=== PATIENT | male | born 1935 | race Caucasian/White ===

== ENCOUNTER 2018-02-22 21:18 | Emergency (ER) | payer MEDICARE, OTHER ==
--- NOTE | 2018-02-22 22:13 | EDM.PDOC ---
ED HPI GENERAL MEDICAL PROBLEM - General Chief Complaint: Genitourinary Problem Stated Complaint: BLOOD IN HIS URINE Time Seen by Provider: 02/22/18 21:50 Source of Information: Reports: Patient, Family History Limitations: Reports: No Limitations - History of Present Illness INITIAL COMMENTS - FREE TEXT/NARRATIVE: Esdras comes into [facility] ED with inability to void since early am. 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 He has had issues with hematuria in the past, and did see a Urologist 5 days ago, without findings for hematuria or retention. Upon arrival, there was obvious suprapubic distention, bladder scan noted 901 ml of fluid, and he was cathed with a 16 F Palencia Cath with recovery of 1000 ml of bloody urine, specimen sent to lab. He is feeling better at this time. Lower Bladder Pain Score (Numeric/FACES): 5 - Related Data Allergies Allergy/AdvReac Type Severity Reaction Status Date / Time No Known Allergies Allergy Verified 02/22/18 21:48 Home Meds: Home Meds Aspirin 81 mg PO DAILY 02/22/18 [History] Metoprolol Tartrate 25 mg PO ASDIRECTED 02/22/18 [History] Multivitamin [Multi-Vitamin Daily] 1 tab PO ASDIRECTED 02/22/18 [History] ED ROS GENERAL - Review of Systems Review Of Systems: ROS reveals no pertinent complaints other than HPI. ED EXAM, RENAL/ - Physical Exam Exam: See Below Exam Limited By: No Limitations General Appearance: Alert, WD/WN, Mild Distress Head: Normocephalic Neck: Normal Inspection Respiratory/Chest: Lungs Clear Cardiovascular: Regular Rate, Rhythm GI/Abdominal: Normal Bowel Sounds, Soft, Non-Tender, No Organomegaly, No Distention, Other (suprapubic fullness post cath) Back Exam: Normal Inspection Extremities: Other (ulceration left foot) Neurological: Alert, Oriented, CN II-XII Intact, Normal Cognition, Sensory/ Motor Deficit Psychiatric: Normal Affect, Normal Mood Skin Exam: Warm, Dry Lymphatic: No Adenopathy Course - Vital Signs Text/Narrative:: Following catheterization and removal of 1000 ml of bloody urine, the bladder was irrigated with NS til clear, and reattached to straight drainage. Follow up with PCP tomorrow. Last Recorded V/S: Last Vital Signs Temp 36.5 C 02/22/18 21:51 Pulse 103 H 02/22/18 21:51 Resp 18 02/22/18 21:51 BP 167/83 H 02/22/18 21:51 Pulse Ox 100 02/22/18 21:51 - Orders/Labs/Meds Orders: Active Orders 24 hr Category Date Time Status CULTURE URINE [RM] Stat Lab 02/22/18 22:00 Received UA W/MICROSCOPIC [URIN] Stat Lab 02/22/18 22:00 Ordered Labs: Laboratory Tests 02/22/18 Range/Units 22:00 Urine Color Brown (YELLOW) Urine Appearance Cloudy (CLEAR) Urine pH 5.0 (5.0-6.5) Ur Specific Reynolds 1.015 (1.010-1.025) Urine Protein 500 H (NEGATIVE) mg/dL Urine Glucose (UA) Normal (NEGATIVE) mg/dL Urine Ketones Negative (NEGATIVE) mg/dL Urine Occult Blood Large H (NEGATIVE) Urine Nitrite Positive H (NEGATIVE) Urine Bilirubin Small H (NEGATIVE) Urine Urobilinogen 1 H (NEGATIVE) mg/dL Ur Leukocyte Esterase Moderate H (NEGATIVE) Urine RBC Packed H (0) Urine WBC 5-10 (0) Ur Squamous Epith Cells Occasional (NS,R,O) Urine Bacteria Moderate H (NS) Departure - Departure Time of Disposition: 22:55 Disposition: Home, Self-Care 01 Condition: Fair Clinical Impression: Urinary retention - Discharge Information Referrals: Mario Maradiaga MD [Primary Care Provider] - Forms: ED Department Discharge - Problem List & Annotations (1) Urinary retention SNOMED Code(s): 859069199 Code(s): R33.9 - RETENTION OF URINE, UNSPECIFIED Status: Acute Current Visit: Yes Annotation/Comment:: Keep palencia cath to straight drainage, and follow up with PCP tomorrow regarding disposition. - Problem List Review Problem List Initiated/Reviewed/Updated: Yes - My Orders Last 24 Hours: My Active Orders 02/22/18 22:00 CULTURE URINE [RM] Stat UA W/MICROSCOPIC [URIN] Stat - Assessment/Plan Last 24 Hours: My Active Orders 02/22/18 22:00 CULTURE URINE [RM] Stat UA W/MICROSCOPIC [URIN] Stat Plan: Follow up with PCP tomorrow.
== END 2018-02-22 23:17 | disposition home or self-care (01) ==
LOC: FB.ED 21:18
DX: R33.9 Retention of urine, unspecified (principal); Z79.82 Long term (current) use of aspirin; Z79.899 Other long term (current) drug therapy
CPT/HCPCS: 51702; 51798; 81001; 87086; 99282; 99283

== ENCOUNTER 2018-02-25 20:57 | Emergency (ER) | payer MEDICARE, OTHER ==
--- NOTE | 2018-02-25 21:29 | EDM.PDOC ---
ED HPI GENERAL MEDICAL PROBLEM - General Chief Complaint: Genitourinary Problem Stated Complaint: GENERAL Time Seen by Provider: 02/25/18 21:00 Source of Information: Reports: Patient History Limitations: Reports: No Limitations - History of Present Illness INITIAL COMMENTS - FREE TEXT/NARRATIVE: Esdras returns to [facility] ED this evening unable to void again after his Palencia Cath was removed today by PCP. He reportedly had clear urine, and is unable to explain inability to void. There is no fever, chills or backache. He has tried no meds. - Related Data Allergies Allergy/AdvReac Type Severity Reaction Status Date / Time No Known Allergies Allergy Verified 02/22/18 21:48 Home Meds: Home Meds Aspirin 81 mg PO DAILY 02/22/18 [History] Metoprolol Tartrate 25 mg PO ASDIRECTED 02/22/18 [History] Multivitamin [Multi-Vitamin Daily] 1 tab PO ASDIRECTED 02/22/18 [History] Past Medical History HEENT History: Reports: Impaired Vision Cardiovascular History: Reports: Hypertension Genitourinary History: Reports: Other (See Below) Other Genitourinary History: hx of blood in urine Musculoskeletal History: Reports: Amputation - Infectious Disease History Infectious Disease History: Reports: Chicken Pox, Measles - Past Surgical History Musculoskeletal Surgical History: Reports: Amputation Social & Family History - Family History Family Medical History: Noncontributory - Tobacco Use Smoking Status *Q: Never Smoker Second Hand Smoke Exposure: No - Caffeine Use Caffeine Use: Reports: Coffee - Recreational Drug Use Recreational Drug Use: No ED ROS GENERAL - Review of Systems Review Of Systems: ROS reveals no pertinent complaints other than HPI. ED EXAM, RENAL/ - Physical Exam Exam: See Below Exam Limited By: No Limitations General Appearance: Alert, WD/WN, No Apparent Distress, Anxious Head: Normocephalic Neck: Normal Inspection, Supple Respiratory/Chest: Lungs Clear, Normal Breath Sounds, Chest Non-Tender Cardiovascular: Regular Rate, Rhythm, No Murmur GI/Abdominal: Normal Bowel Sounds, Soft, No Organomegaly, Mass (suprapubic fullness consistent with bladder distention) (Male) Exam: No Hernia Back Exam: Normal Inspection Neurological: Alert, Oriented, CN II-XII Intact, No Motor/Sensory Deficits Psychiatric: Normal Affect, Anxious Skin Exam: Warm, Dry, Intact Lymphatic: No Adenopathy ED PROCEDURES - Additional/Other Procedure(s) Procedure(s) (Free Text): Esdras was placed on the guerney, bladder scan 999+mls. Using sterile technique , the nurse inserted a #16F Palencia Cath easily, 5 ml baloon inflated, and prompt return of clear urine measuring 970 mls. A UA was sent downstairs. Patient tolerated procedure well. Course - Vital Signs Text/Narrative:: Patient tolerated procedure well. Departure - Departure Time of Disposition: 21:29 Disposition: Home, Self-Care 01 Condition: Good Clinical Impression: Urinary retention - Discharge Information Referrals: PCP,Unknown [Primary Care Provider] - Forms: ED Department Discharge - Problem List & Annotations (1) Urinary retention SNOMED Code(s): 770469197 Code(s): R33.9 - RETENTION OF URINE, UNSPECIFIED Status: Acute Current Visit: Yes Annotation/Comment:: Keep palencia cath to straight drainage, and follow up with PCP tomorrow regarding disposition. - Problem List Review Problem List Initiated/Reviewed/Updated: Yes - Assessment/Plan Plan: Follow up with PCP tomorrow.
== END 2018-02-25 22:25 | disposition home or self-care (01) ==
LOC: FB.ED 20:57
DX: R33.9 Retention of urine, unspecified (principal); I10 Essential (primary) hypertension; Z79.82 Long term (current) use of aspirin
CPT/HCPCS: 51702; 51798; 81001; 99283; 99284

== ENCOUNTER 2018-03-25 18:50 | Inpatient (IN) | payer MEDICARE, OTHER ==
--- NOTE | 2018-03-25 19:34 | EDM.PDOC ---
ED HPI GENERAL MEDICAL PROBLEM - General Chief Complaint: Lower Extremity Injury/Pain Stated Complaint: RT LEG REDNESS AND SWELLING Time Seen by Provider: 03/25/18 19:15 Source of Information: Reports: Patient, Family, Old Records History Limitations: Reports: No Limitations - History of Present Illness INITIAL COMMENTS - FREE TEXT/NARRATIVE: Esdras returns to [facility] ED this evening with an 18 hour hx of progressive swelling, pain, and reddness of the R lower leg. There is no injury hx, fever, or sxs affecting the L leg. There is a PMH of chronic venous insufficiency affecting both legs, but no hx of DVT. He has taken no meds. He last saw his PCP 5 days ago for a pre op PE for TURP. Bilateral lower legs Pain Score (Numeric/FACES): 0 - Related Data Allergies Allergy/AdvReac Type Severity Reaction Status Date / Time simvastatin [From Zocor] Allergy Cannot Verified 03/25/18 19:28 Remember Home Meds: Home Meds Aspirin 325 mg PO DAILY 02/22/18 [History] Metoprolol Tartrate 25 mg PO DAILY 02/22/18 [History] Multivitamin [Multi-Vitamin Daily] 1 tab PO BEDTIME 02/22/18 [History] Dutasteride [Avodart] 0.5 mg PO DAILY 03/25/18 [History] Tamsulosin HCl 0.4 mg PO DAILY 03/25/18 [History] Past Medical History HEENT History: Reports: Impaired Vision Cardiovascular History: Reports: Hypertension, Other (See Below) (chronic venous insufficiency both legs) Genitourinary History: Reports: Other (See Below) Other Genitourinary History: hx of blood in urine Musculoskeletal History: Reports: Amputation - Infectious Disease History Infectious Disease History: Reports: Chicken Pox, Measles - Past Surgical History Musculoskeletal Surgical History: Reports: Amputation Social & Family History - Family History Family Medical History: Noncontributory - Tobacco Use Smoking Status *Q: Never Smoker Second Hand Smoke Exposure: No - Caffeine Use Caffeine Use: Reports: Coffee - Recreational Drug Use Recreational Drug Use: No Review of Systems - Review of Systems Review Of Systems: See Below Constitutional: Reports: No Symptoms Eyes: Reports: No Symptoms Ears: Reports: No Symptoms Nose: Reports: No Symptoms Mouth/Throat: Reports: No Symptoms Respiratory: Reports: No Symptoms Cardiovascular: Reports: No Symptoms Genitourinary: Reports: No Symptoms Musculoskeletal: Reports: Leg Pain (right) Skin: Reports: Pruritis, Rash, Erythema, Change in Color, Lesions Neurological: Reports: No Symptoms Psychiatric: Reports: No Symptoms ED EXAM, GENERAL - Physical Exam Exam: See Below Exam Limited By: No Limitations General Appearance: Alert, WD/WN, Mild Distress Eye Exam: Bilateral Eye: EOMI, Normal Inspection, PERRL Ears: Normal External Exam Nose: Normal Inspection Throat/Mouth: Normal Inspection, Normal Gums, Normal Oropharynx, Normal Voice, No Airway Compromise Head: Normocephalic Neck: Normal Inspection, Supple, Non-Tender Respiratory/Chest: Lungs Clear, Normal Breath Sounds Cardiovascular: Regular Rate, Rhythm, No Murmur GI/Abdominal: Normal Bowel Sounds, Soft, Non-Tender, No Organomegaly, No Distention, No Mass (Male) Exam: Deferred Rectal (Males) Exam: Deferred Back Exam: Normal Inspection Extremities: Normal Range of Motion, Pedal Edema, Redness (R lower leg with blebs) Neurological: Alert, Oriented, CN II-XII Intact, Normal Cognition, No Motor/ Sensory Deficits Psychiatric: Normal Affect, Normal Mood Skin Exam: Warm, Erythema, Increased Warmth, Rash, Other (blebs R leg) Lymphatic: No Adenopathy Course - Vital Signs Text/Narrative:: Suspected cellulitis of the R lower leg in the context of chronic venous insufficiency, doppler study pending. He will be admitted to observation and started on antibx tonight. Last Recorded V/S: Last Vital Signs Temp 35.9 C 03/25/18 21:20 Pulse 64 03/25/18 21:20 Resp 16 03/25/18 21:20 BP 143/76 H 03/25/18 21:20 Pulse Ox 98 03/25/18 21:20 - Orders/Labs/Meds Orders: Active Orders 24 hr Category Date Time Status VL Duplex Lwr Ext Veins Ltd Rt [US] Stat Exams 03/25/18 19:20 Taken CULTURE ROUTINE + SMEAR [] Stat Lab 03/25/18 19:38 Ordered Medication Orders Ceftriaxone Sodium 2 gm/ (Sodium Chloride) 100 mls @ 200 mls/hr IV Q12H [facility] Last Admin: 03/25/18 22:06 Dose: 200 mls/hr Sodium Chloride (Normal Saline) 1,000 mls @ 200 mls/hr IV ASDIRECTED [facility] Last Admin: 03/25/18 22:04 Dose: 200 mls/hr Vancomycin HCl 1 gm/ Sodium (Chloride) 250 mls @ 167 mls/hr IV Q24H [facility] Last Admin: 03/25/18 22:09 Dose: 167 mls/hr Sodium Chloride (Saline Flush) 10 ml FLUSH ASDIRECTED PRN PRN Reason: Keep Vein Open Labs: Laboratory Tests 03/25/18 03/25/18 03/25/18 Range/Units 19:35 19:35 19:35 WBC 8.6 (4.5-12.0) X10-3/uL RBC 4.61 (4.30-5.75) x10(6)uL Hgb 13.6 (11.5-15.5) g/dL Hct 39.9 (30.0-51.3) % MCV 86.5 (80-96) fL MCH 29.6 (27.7-33.6) pg MCHC 34.2 (32.2-35.4) g/dL RDW 14.3 (11.5-15.5) % Plt Count 127 (125-369) X10(3)uL MPV 9.3 (7.4-10.4) fL Neut % (Auto) 77.3 (46-82) % Lymph % (Auto) 11.4 L (13-37) % [place] % (Auto) 8.4 (4-12) % Eos % (Auto) 3 (1.0-5.0) % Baso % (Auto) 0 (0-2) % Neut # (Auto) 6.7 (1.6-8.3) # Lymph # (Auto) 1.0 (0.6-5.0) # [place] # (Auto) 0.7 (0.0-1.3) # Eos # (Auto) 0.2 (0.0-0.8) # Baso # (Auto) 0.0 (0.0-0.2) # PT 10.0 (8.7-11.1) INR 0.99 (0.89-1.13) D-Dimer, Quantitative 233 (100-400) ng/mL Sodium (135-145) mmol/L Potassium (3.5-5.3) mmol/L Chloride (100-110) mmol/L Carbon Dioxide (21-32) mmol/L BUN (7-18) mg/dL Creatinine (0.70-1.30) mg/dL Est Cr Clr Drug Dosing mL/min Estimated GFR (MDRD) (>60) BUN/Creatinine Ratio (9-20) Glucose (80-116) mg/dL Lactic Acid (0.4-2.2) mmol/L Calcium (8.6-10.2) mg/dL Total Bilirubin (0.1-1.3) mg/dL AST (5-25) IU/L ALT (12-36) U/L Alkaline Phosphatase (56-112) IU/L Total Protein (6.0-8.0) g/dL Albumin (3.2-4.6) g/dL Globulin g/dL Albumin/Globulin Ratio 03/25/18 03/25/18 Range/Units 19:35 19:35 WBC (4.5-12.0) X10-3/uL RBC (4.30-5.75) x10(6)uL Hgb (11.5-15.5) g/dL Hct (30.0-51.3) % MCV (80-96) fL MCH (27.7-33.6) pg MCHC (32.2-35.4) g/dL RDW (11.5-15.5) % Plt Count (125-369) X10(3)uL MPV (7.4-10.4) fL Neut % (Auto) (46-82) % Lymph % (Auto) (13-37) % [place] % (Auto) (4-12) % Eos % (Auto) (1.0-5.0) % Baso % (Auto) (0-2) % Neut # (Auto) (1.6-8.3) # Lymph # (Auto) (0.6-5.0) # [place] # (Auto) (0.0-1.3) # Eos # (Auto) (0.0-0.8) # Baso # (Auto) (0.0-0.2) # PT (8.7-11.1) INR (0.89-1.13) D-Dimer, Quantitative (100-400) ng/mL Sodium 140 (135-145) mmol/L Potassium 3.9 (3.5-5.3) mmol/L Chloride 104 (100-110) mmol/L Carbon Dioxide 30 (21-32) mmol/L BUN 26 H (7-18) mg/dL Creatinine 1.4 H (0.70-1.30) mg/dL Est Cr Clr Drug Dosing 39.83 mL/min Estimated GFR (MDRD) 48 L (>60) BUN/Creatinine Ratio 18.6 (9-20) Glucose 90 (80-116) mg/dL Lactic Acid 0.8 (0.4-2.2) mmol/L Calcium 8.8 (8.6-10.2) mg/dL Total Bilirubin 0.8 (0.1-1.3) mg/dL AST 23 (5-25) IU/L ALT 26 (12-36) U/L Alkaline Phosphatase 82 (56-112) IU/L Total Protein 7.6 (6.0-8.0) g/dL Albumin 3.4 (3.2-4.6) g/dL Globulin 4.2 g/dL Albumin/Globulin Ratio 0.8 Meds: Medications Generic Name Dose Route Start Last Admin Trade Name Freq PRN Reason Stop Dose Admin Ceftriaxone Sodium 2 gm/ 100 mls @ 200 mls/hr 03/25/18 19:45 03/25/18 22:06 Sodium Chloride IV 200 mls/hr Q12H [facility] Administration Sodium Chloride 1,000 mls @ 200 mls/hr 03/25/18 19:45 03/25/18 22:04 Normal Saline IV 200 mls/hr ASDIRECTED [facility] Administration Vancomycin HCl 1 gm/ Sodium 250 mls @ 167 mls/hr 03/25/18 19:45 03/25/18 22: 09 Chloride IV 167 mls/hr Q24H [facility] Administration Sodium Chloride 10 ml 03/25/18 19:44 Saline Flush FLUSH ASDIRECTED PRN Keep Vein Open Departure - Departure Time of Disposition: 20:00 Disposition: Refer to Observation Condition: Fair Clinical Impression: Venous insufficiency of right lower extremity, Cellulitis of right leg - Discharge Information - Problem List & Annotations (1) Venous insufficiency of right lower extremity SNOMED Code(s): 157210324 Code(s): I87.2 - VENOUS INSUFFICIENCY (CHRONIC) (PERIPHERAL) Status: Acute Current Visit: No Annotation/Comment:: Admit to observation, moist packs for cooling, elevate (2) Cellulitis of right leg SNOMED Code(s): 259533081 Code(s): L03.115 - CELLULITIS OF RIGHT LOWER LIMB Status: Acute Current Visit: No Annotation/Comment:: Obtain wound culture, begin Rocephin and Vancomycin IV tonight. - Problem List Review Problem List Initiated/Reviewed/Updated: Yes - My Orders Last 24 Hours: My Active Orders 03/25/18 19:20 VL Duplex Lwr Ext Veins Ltd Rt [US] Stat 03/25/18 19:38 CULTURE ROUTINE + SMEAR [RM] Stat - Assessment/Plan Last 24 Hours: My Active Orders 03/25/18 19:20 VL Duplex Lwr Ext Veins Ltd Rt [US] Stat 03/25/18 19:38 CULTURE ROUTINE + SMEAR [RM] Stat Plan: Admit to observation, Hospitalist to see in the am.
[2018-03-25] MEDS: Sodium Chloride 0.9% 1,000 ML IV SCH (22:04)
[2018-03-25] MEDS: cefTRIAXone 2 GM in Sodium Chloride 0.9% 100 ML IV SCH (22:06)
[2018-03-26] MEDS: Sodium Chloride 0.9% 1,000 ML IV SCH ×4 (04:35→20:59)
[2018-03-26] MEDS: cefTRIAXone 2 GM in Sodium Chloride 0.9% 100 ML IV SCH (07:39)
--- NOTE | 2018-03-26 13:59 | US ---
INDICATION: Both calves purple in color with weeping sores, question possible DVT. DUPLEX ULTRASOUND, RIGHT LOWER EXTREMITY VEINS: Utilizing 2-D real time, duplex Doppler spectral analysis and color flow imaging, examination of the right lower extremity veins revealed no evidence of deep venous thrombosis or greater saphenous thrombosis. Valvular competence was not able to be evaluated. IMPRESSION: No evidence of deep venous thrombosis or greater saphenous thrombosis. MTDD
--- NOTE | 2018-03-26 15:13 | PCM.HP ---
H&P History of Present Illness - General Date of Service: 03/26/18 Admit Problem/Dx: Admission Diagnosis/Problem Admission Diagnosis/Problem Cellulitis of leg - History of Present Illness Initial Comments - Free Text/Narative: Patient is an 83-year-old gentleman with a history of urinary retention who has a planned TURP for 4 days from now. Just had a preoperative exam done 5 days ago and was doing very well at that time. He has chronic venous insufficiency and on Thursday had the acute onset of redness, swelling and pain in the right lower leg. It became edematous and even had some weeping and he presented to the emergency department. He was started on Rocephin and vancomycin and admitted to the hospital for further treatment of his acute right lower extremity cellulitis. DVT study was negative. He otherwise had been feeling well. He had no fevers, no chills, no sweats, no nausea, no vomiting, no diarrhea, no chest pain, no shortness of breath. Does have chronic stasis changes to both legs. Was admitted last evening and is already feeling much improved. Pain is much improved. He's had improvement in the redness and the swelling. 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 Patient was previously on hemodialysis for acute kidney injury in February 2017 and off dialysis in April 2017. 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 #8 Hypertension Social history: The patient lives alone in [facility] in his own home. Home health follows. He does not drive. He is a nonsmoker, nondrinker, quit in 1990. Family History: Leukemia Mother Myocardial Infarction Brother Colon Cancer Sister Non cancerous brain tumors Cancer Son Prostate Cancer Brother Bilateral lower legs Pain Score (Numeric/FACES): 3 - Related Data Allergies/Adverse Reactions: Allergies Allergy/AdvReac Type Severity Reaction Status Date / Time simvastatin [From Zocor] Allergy Cannot Verified 03/25/18 19:28 Remember Home Medications: Home Meds Aspirin 325 mg PO DAILY 02/22/18 [History] Multivitamin [Multi-Vitamin Daily] 1 tab PO BEDTIME 02/22/18 [History] Dutasteride [Avodart] 0.5 mg PO DAILY 03/25/18 [History] Tamsulosin HCl 0.4 mg PO DAILY 03/25/18 [History] Metoprolol Succinate 25 mg PO DAILY 03/26/18 [History] Past Medical History HEENT History: Reports: Impaired Vision Cardiovascular History: Reports: Hypertension, Other (See Below) (chronic venous insufficiency both legs) Other Cardiovascular History: Peripheral vascular disease Gastrointestinal History: Reports: PUD Genitourinary History: Reports: Other (See Below) Other Genitourinary History: hx of blood in urine Musculoskeletal History: Reports: Amputation Other Musculoskeletal History: 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 Dried blisters left lower leg. bilateral lower legs purple/blue in color with +1-2 edema. Denies pain due to neuropathy. - Infectious Disease History Infectious Disease History: Reports: Chicken Pox, Measles - Past Surgical History Musculoskeletal Surgical History: Reports: Amputation Social & Family History - Family History Family Medical History: Noncontributory - Tobacco Use Smoking Status *Q: Never Smoker Years of Tobacco use: 40 Used Tobacco, but Quit: Yes Month/Year Tobacco Last Used: 1997 Second Hand Smoke Exposure: No - Caffeine Use Caffeine Use: Reports: Coffee - Recreational Drug Use Recreational Drug Use: No H&P Review of Systems - Review of Systems: Review Of Systems: ROS reveals no pertinent complaints other than HPI. Exam - Exam Exam: See Below - Vital Signs Vital Signs: Last Vital Signs Temp 36.7 C 03/26/18 07:48 Pulse 65 03/26/18 07:48 Resp 20 03/26/18 07:48 BP 132/65 03/26/18 07:48 Pulse Ox 96 03/26/18 07:48 Weight: 97.976 kg - Exam General: Alert, Oriented, Cooperative HEENT: PERRLA, Conjunctiva Clear Neck: Supple, Trachea Midline Lungs: Clear to Auscultation, Normal Respiratory Effort Cardiovascular: Regular Rate, Normal S1, Normal S2, Irregular Rhythm GI/Abdominal Exam: Normal Bowel Sounds, Soft, Non-Tender, No Distention Extremities: Pedal Edema (We stasis changes bilaterally. Right leg is slightly erythematous from foot to mid abdullahi. He has a large about 4 cm in diameter irregularly shaped superficial ulceration on the anterior abdullahi.) Neuro Extensive - Mental Status: Alert, Oriented x3, Normal Mood/Affect - Patient Data Lab Results Last 24 hrs: Laboratory Results - last 24 hr 03/25/18 03/25/18 03/25/18 Range/Units 19:35 19:35 19:35 WBC 8.6 (4.5-12.0) X10-3/uL RBC 4.61 (4.30-5.75) x10(6)uL Hgb 13.6 (11.5-15.5) g/dL Hct 39.9 (30.0-51.3) % MCV 86.5 (80-96) fL MCH 29.6 (27.7-33.6) pg MCHC 34.2 (32.2-35.4) g/dL RDW 14.3 (11.5-15.5) % Plt Count 127 (125-369) X10(3)uL MPV 9.3 (7.4-10.4) fL Neut % (Auto) 77.3 (46-82) % Lymph % (Auto) 11.4 L (13-37) % [place] % (Auto) 8.4 (4-12) % Eos % (Auto) 3 (1.0-5.0) % Baso % (Auto) 0 (0-2) % Neut # (Auto) 6.7 (1.6-8.3) # Lymph # (Auto) 1.0 (0.6-5.0) # [place] # (Auto) 0.7 (0.0-1.3) # Eos # (Auto) 0.2 (0.0-0.8) # Baso # (Auto) 0.0 (0.0-0.2) # PT 10.0 (8.7-11.1) INR 0.99 (0.89-1.13) D-Dimer, Quantitative 233 (100-400) ng/mL Sodium (135-145) mmol/L Potassium (3.5-5.3) mmol/L Chloride (100-110) mmol/L Carbon Dioxide (21-32) mmol/L BUN (7-18) mg/dL Creatinine (0.70-1.30) mg/dL Est Cr Clr Drug Dosing mL/min Estimated GFR (MDRD) (>60) BUN/Creatinine Ratio (9-20) Glucose (80-116) mg/dL Lactic Acid (0.4-2.2) mmol/L Calcium (8.6-10.2) mg/dL Total Bilirubin (0.1-1.3) mg/dL AST (5-25) IU/L ALT (12-36) U/L Alkaline Phosphatase (56-112) IU/L Total Protein (6.0-8.0) g/dL Albumin (3.2-4.6) g/dL Globulin g/dL Albumin/Globulin Ratio 03/25/18 03/25/18 Range/Units 19:35 19:35 WBC (4.5-12.0) X10-3/uL RBC (4.30-5.75) x10(6)uL Hgb (11.5-15.5) g/dL Hct (30.0-51.3) % MCV (80-96) fL MCH (27.7-33.6) pg MCHC (32.2-35.4) g/dL RDW (11.5-15.5) % Plt Count (125-369) X10(3)uL MPV (7.4-10.4) fL Neut % (Auto) (46-82) % Lymph % (Auto) (13-37) % [place] % (Auto) (4-12) % Eos % (Auto) (1.0-5.0) % Baso % (Auto) (0-2) % Neut # (Auto) (1.6-8.3) # Lymph # (Auto) (0.6-5.0) # [place] # (Auto) (0.0-1.3) # Eos # (Auto) (0.0-0.8) # Baso # (Auto) (0.0-0.2) # PT (8.7-11.1) INR (0.89-1.13) D-Dimer, Quantitative (100-400) ng/mL Sodium 140 (135-145) mmol/L Potassium 3.9 (3.5-5.3) mmol/L Chloride 104 (100-110) mmol/L Carbon Dioxide 30 (21-32) mmol/L BUN 26 H (7-18) mg/dL Creatinine 1.4 H (0.70-1.30) mg/dL Est Cr Clr Drug Dosing 39.83 mL/min Estimated GFR (MDRD) 48 L (>60) BUN/Creatinine Ratio 18.6 (9-20) Glucose 90 (80-116) mg/dL Lactic Acid 0.8 (0.4-2.2) mmol/L Calcium 8.8 (8.6-10.2) mg/dL Total Bilirubin 0.8 (0.1-1.3) mg/dL AST 23 (5-25) IU/L ALT 26 (12-36) U/L Alkaline Phosphatase 82 (56-112) IU/L Total Protein 7.6 (6.0-8.0) g/dL Albumin 3.4 (3.2-4.6) g/dL Globulin 4.2 g/dL Albumin/Globulin Ratio 0.8 Result Diagrams: 03/25/18 19:35 03/25/18 19:35 - Problem List (1) Cellulitis of right leg SNOMED Code(s): 697132319 ICD Code: L03.115 - CELLULITIS OF RIGHT LOWER LIMB Status: Acute Current Visit: No Problem Details: Wound culture is pending. Given patient's lack of purulent discharge, will de-escalate antibiotics to cover strep and MSSA. Continue IV Rocephin. Patient has no history of MRSA colonization. (2) CKD (chronic kidney disease) stage 3, GFR 30-59 ml/min SNOMED Code(s): 794403828 ICD Code: N18.3 - CHRONIC KIDNEY DISEASE, STAGE 3 (MODERATE) Status: Acute Current Visit: Yes Problem Details: Avoid renal toxic drugs. At current baseline of creatinine 1.6. (3) Urinary retention SNOMED Code(s): 199020100 ICD Code: R33.9 - RETENTION OF URINE, UNSPECIFIED Status: Acute Current Visit: No Problem Details: Continue Roldan catheter. Patient's surgery will need to be pushed back until he has completed his antibiotic therapy. (4) DVT prophylaxis SNOMED Code(s): 369052257, 612598868 ICD Code: [id number] - Status: Acute Current Visit: Yes Problem Details: Lovenox, SCDs, mobilization as patient tolerates. Problem List Initiated/Reviewed/Updated: Yes Orders Last 24hrs: Active Orders 24 hr Category Date Time Status Renal Non-Dialysis Diet [DIET] Diet 03/26/18 Breakfast Active CULTURE ROUTINE + SMEAR [RM] Stat Lab 03/25/18 19:38 Ordered Sodium Chloride 0.9% [Normal Saline] 1,000 ml Med 03/25/18 19:45 Active IV ASDIRECTED Sodium Chloride 0.9% [Saline Flush] Med 03/25/18 19:44 Active 10 ml FLUSH ASDIRECTED PRN cefTRIAXone [Rocephin] Med 03/26/18 20:00 Active 2 gm IV Q12H Peripheral IV Insertion Adult [OM.PC] Routine Oth 03/25/18 19:44 Ordered Medication Orders Ceftriaxone Sodium (Rocephin) 2 gm IV Q12H [facility] Sodium Chloride (Normal Saline) 1,000 mls @ 200 mls/hr IV ASDIRECTED [facility] Last Admin: 03/26/18 10:54 Dose: 200 mls/hr Infusion: 03/26/18 09:35 Dose: 200 mls/hr Admin: 03/26/18 04:35 Dose: 200 mls/hr Infusion: 03/26/18 03:04 Dose: 200 mls/hr Admin: 03/25/18 22:04 Dose: 200 mls/hr Sodium Chloride (Saline Flush) 10 ml FLUSH ASDIRECTED PRN PRN Reason: Keep Vein Open Assessment/Plan Comment:: Discussed CODE STATUS with the patient. If his heart were to stop beating or he were to stop breathing, if he were to , he would not want resuscitation. "Just let me go". If he were to have a severe pneumonia and be unable to survive unless he was intubated, he would want supportive care and comfort measures even though he knows this would hasten his . He would not want intubation. Thus patient is a DNR/DNI.
[2018-03-26] MEDS ORDERED: Acetaminophen 325 MG Tab PO PRN (15:24)
[2018-03-26] MEDS ORDERED: Docusate Sodium 100 MG Cap PO PRN (15:24)
[2018-03-26] MEDS ORDERED: Sodium Chloride 0.9% 10 ML Syringe FLUSH PRN (15:24)
[2018-03-26] MEDS ORDERED: oxyCODONE 5 MG Tab PO PRN (15:24)
[2018-03-26] MEDS ORDERED: Ondansetron 4 MG Tab.DIS PO PRN (15:24)
[2018-03-26] MEDS: Heparin Sodium 5,000 Units/ML Vial SUBCUT SCH (20:17)
[2018-03-26] MEDS: cefTRIAXone 2 GM Vial IV SCH (20:21)
[2018-03-27] MEDS: Sodium Chloride 0.9% 1,000 ML IV SCH ×2 (01:59→07:02)
[2018-03-27] MEDS: cefTRIAXone 2 GM Vial IV SCH (08:40)
[2018-03-27] MEDS: Heparin Sodium 5,000 Units/ML Vial SUBCUT SCH ×2 (08:40→21:24)
[2018-03-27] MEDS: Metoprolol Succinate 25 MG Tab.ER *PTOM PO SCH (08:47)
[2018-03-27] MEDS: Sodium Chloride 0.9% 10 ML Syringe FLUSH PRN (09:00)
--- NOTE | 2018-03-27 13:24 | PCM.PN ---
- General Info Date of Service: 03/27/18 Subjective Update: Patient is an 83-year-old gentleman currently on hospital day #3 for right lower extremity cellulitis. Wound cultures still has not shown any growth. Patient's legs were putting compression stockings yesterday and he's had significant improvement in his swelling and his pain. Redness is almost gone. Still has an open area on the right lower extremity which is draining serous fluid. He's had no chest pain, no shortness of breath, no nausea, no vomiting, no diarrhea. He feels really well. Was up and showered this morning. - Patient Data Vitals - Most Recent: Last Vital Signs Temp 36.6 C 03/27/18 09:00 Pulse 74 03/27/18 09:00 Resp 16 03/27/18 09:00 BP 140/70 03/27/18 09:00 Pulse Ox 98 03/27/18 09:00 Weight - Most Recent: 100.153 kg I&O - Last 24 Hours: Intake & Output 03/26/18 03/27/18 03/27/18 22:59 06:59 14:59 Intake Total 1803 1561 Output Total 1250 1300 Balance 553 261 Lab Results Last 24 Hours: Laboratory Results - last 24 hr 03/27/18 03/27/18 Range/Units 06:20 06:20 WBC 7.0 (4.5-12.0) X10-3/uL RBC 4.34 (4.30-5.75) x10(6)uL Hgb 12.6 (11.5-15.5) g/dL Hct 37.8 (30.0-51.3) % MCV 87.1 (80-96) fL MCH 29.1 (27.7-33.6) pg MCHC 33.5 (32.2-35.4) g/dL RDW 14.3 (11.5-15.5) % Plt Count 106 L (125-369) X10(3)uL MPV 9.7 (7.4-10.4) fL Neut % (Auto) 77.0 (46-82) % Lymph % (Auto) 10.4 L (13-37) % [place] % (Auto) 9.6 (4-12) % Eos % (Auto) 3 (1.0-5.0) % Baso % (Auto) 0 (0-2) % Neut # (Auto) 5.4 (1.6-8.3) # Lymph # (Auto) 0.7 (0.6-5.0) # [place] # (Auto) 0.7 (0.0-1.3) # Eos # (Auto) 0.2 (0.0-0.8) # Baso # (Auto) 0.0 (0.0-0.2) # Sodium 141 (135-145) mmol/L Potassium 3.6 (3.5-5.3) mmol/L Chloride 110 D (100-110) mmol/L Carbon Dioxide 25 (21-32) mmol/L BUN 19 H (7-18) mg/dL Creatinine 1.2 (0.70-1.30) mg/dL Est Cr Clr Drug Dosing 43.54 mL/min Estimated GFR (MDRD) 58 L (>60) BUN/Creatinine Ratio 15.8 (9-20) Glucose 96 (80-116) mg/dL Calcium 7.9 L (8.6-10.2) mg/dL Samm Results Last 24 Hours: Microbiology 03/25/18 19:38 Gram Stain - Final Drainage - Leg, Right Routine Culture - Preliminary NO GROWTH AFTER 1 DAY Med Orders - Current: Current Medications Acetaminophen (Tylenol) 650 mg PO Q4H PRN PRN Reason: Pain (Mild 1-3)/fever Ceftriaxone Sodium (Rocephin) 1,000 mg IV Q24H [facility] Docusate Sodium (Colace) 100 mg PO BID PRN PRN Reason: Constipation Heparin Sodium (Porcine) (Heparin Sodium) 5,000 units SUBCUT BID [facility] Last Admin: 03/27/18 08:40 Dose: 5,000 units Metoprolol Succinate (Toprol Xl) 25 mg PO DAILY [facility] Last Admin: 03/27/18 08:47 Dose: 25 mg Ondansetron HCl (Zofran Odt) 4 mg PO Q6H PRN PRN Reason: nausea, able to take PO Oxycodone HCl (Oxycodone) 5 mg PO Q4H PRN PRN Reason: Pain (moderate 4-6) Sodium Chloride (Saline Flush) 10 ml FLUSH ASDIRECTED PRN PRN Reason: Keep Vein Open Last Admin: 03/27/18 09:00 Dose: 10 ml Sodium Chloride (Saline Flush) 10 ml FLUSH ASDIRECTED PRN PRN Reason: Keep Vein Open Discontinued Medications Ceftriaxone Sodium (Rocephin) 2 gm IV Q12H [facility] Last Admin: 03/27/18 08:40 Dose: 2 gm Ceftriaxone Sodium 2 gm/ (Sodium Chloride) 100 mls @ 200 mls/hr IV Q12H [facility] Last Admin: 03/26/18 07:39 Dose: 200 mls/hr Sodium Chloride (Normal Saline) 1,000 mls @ 200 mls/hr IV ASDIRECTED [facility] Last Admin: 03/27/18 07:02 Dose: 200 mls/hr Vancomycin HCl 1 gm/ Sodium (Chloride) 250 mls @ 167 mls/hr IV Q24H [facility] Last Admin: 03/25/18 22:09 Dose: 167 mls/hr - Exam General: Alert, Oriented, Cooperative, No Acute Distress HEENT: Pupils Equal, Pupils Reactive Neck: Supple Lungs: Clear to Auscultation, Normal Respiratory Effort Cardiovascular: Regular Rate, Regular Rhythm, No Murmurs, Murmurs GI/Abdominal Exam: Normal Bowel Sounds, Soft, Non-Tender, No Distention Extremities: Other (significantly improved bilateral pedal edema. Large 5 cm open area of superficial skin removed on right abdullahi, weeping clear blood-tinged fluid. Otherwise no surrounding redness, no tenderness, much improved.) Psy/Mental Status: Alert, Normal Affect, Normal Mood - Problem List & Annotations (1) Cellulitis of right leg SNOMED Code(s): 190072882 Code(s): L03.115 - CELLULITIS OF RIGHT LOWER LIMB Status: Acute Current Visit: No Annotation/Comment:: Wound culture thus far shows no growth. Continue IV Rocephin, dose decreased to 1 gm every 24 hours. Patient has no history of MRSA colonization. Discussed role of compression in preventing future infections. (2) CKD (chronic kidney disease) stage 3, GFR 30-59 ml/min SNOMED Code(s): 699232828 Code(s): N18.3 - CHRONIC KIDNEY DISEASE, STAGE 3 (MODERATE) Status: Acute Current Visit: Yes Annotation/Comment:: Avoid renal toxic drugs. Baseline of creatinine 1.6. Currently 1.2. (3) Urinary retention SNOMED Code(s): 827206323 Code(s): R33.9 - RETENTION OF URINE, UNSPECIFIED Status: Acute Current Visit: No Annotation/Comment:: Continue Roldan catheter. Patient's surgery will need to be pushed back until he has completed his antibiotic therapy. (4) DVT prophylaxis SNOMED Code(s): 790270828, 460972459 Code(s): YDT7994 - Status: Acute Current Visit: Yes Annotation/Comment :: Lovenox, SCDs, mobilization as patient tolerates. - Problem List Review Problem List Initiated/Reviewed/Updated: Yes - My Orders Last 24 Hours: My Active Orders 03/26/18 15:24 Height and Weight [RC] 06 Intake and Output [RC] 06,14,22 Oxygen Therapy [RC] PRN Up With Assistance [RC] ASDIRECTED Up ad Lizy [RC] ASDIRECTED Vital Signs [RC] 08,12,16,20,00,04 PT Evaluation and Treatment [CONS] Routine Acetaminophen [Tylenol] 650 mg PO Q4H PRN Docusate Sodium [Colace] 100 mg PO BID PRN Ondansetron [Zofran ODT] 4 mg PO Q6H PRN Sodium Chloride 0.9% [Saline Flush] 10 ml FLUSH ASDIRECTED PRN oxyCODONE 5 mg PO Q4H PRN Antiembolic Hose [OM.PC] Per Unit Routine Saline Lock Insert [OM.PC] Routine Sequential Compression Device [OM.PC] Per Unit Routine Resuscitation Status Routine 03/26/18 21:00 Heparin Sodium 5,000 units SUBCUT BID 03/27/18 07:35 Convert IV to Saline Lock [OM.PC] Stat 03/27/18 09:00 Metoprolol Succinate [Toprol XL] 25 mg PO DAILY 03/28/18 05:11 CBC WITH AUTO DIFF [HEME] AM COMPREHENSIVE METABOLIC PN,CMP [CHEM] AM 03/28/18 08:00 cefTRIAXone [Rocephin] 1,000 mg IV Q24H - Plan Plan:: Discussed CODE STATUS with the patient. If his heart were to stop beating or he were to stop breathing, if he were to , he would not want resuscitation. "Just let me go". If he were to have a severe pneumonia and be unable to survive unless he was intubated, he would want supportive care and comfort measures even though he knows this would hasten his . He would not want intubation. Thus patient is a DNR/DNI.
[2018-03-28] MEDS: Heparin Sodium 5,000 Units/ML Vial SUBCUT SCH ×2 (08:07→21:18)
[2018-03-28] MEDS: cefTRIAXone 1,000 MG VIAL IV SCH (08:07)
[2018-03-28] MEDS: Metoprolol Succinate 25 MG Tab.ER *PTOM PO SCH (08:08)
--- NOTE | 2018-03-28 09:59 | PCM.PN ---
- General Info Date of Service: 03/28/18 Subjective Update: Patient is an 83-year-old gentleman currently on hospital day #4 for right lower extremity cellulitis. He feels the swelling is possibly a little bit worse today. Has not had his support hose on. No pain. Redness significantly improved. Wound culture did grow gram-positive cocci with ID still pending. Patient is currently on Rocephin IV. No chest pain, no nausea, no vomiting, no diarrhea. - Patient Data Vitals - Most Recent: Last Vital Signs Temp 36.6 C 03/28/18 04:00 Pulse 74 03/28/18 08:08 Resp 18 03/28/18 04:00 BP 132/70 03/28/18 08:08 Pulse Ox 96 03/28/18 04:00 Weight - Most Recent: 100.499 kg I&O - Last 24 Hours: Intake & Output 03/27/18 03/28/18 03/28/18 22:59 06:59 14:59 Intake Total 200 200 Output Total 1000 900 Balance -800 -700 Lab Results Last 24 Hours: Laboratory Results - last 24 hr 03/28/18 03/28/18 Range/Units 06:20 06:20 WBC 6.5 (4.5-12.0) X10-3/uL RBC 4.22 L (4.30-5.75) x10(6)uL Hgb 12.3 (11.5-15.5) g/dL Hct 36.8 (30.0-51.3) % MCV 87.2 (80-96) fL MCH 29.1 (27.7-33.6) pg MCHC 33.4 (32.2-35.4) g/dL RDW 14.7 (11.5-15.5) % Plt Count 110 L (125-369) X10(3)uL MPV 9.5 (7.4-10.4) fL Neut % (Auto) 69.2 (46-82) % Lymph % (Auto) 14.5 (13-37) % [place] % (Auto) 10.7 (4-12) % Eos % (Auto) 5 (1.0-5.0) % Baso % (Auto) 1 (0-2) % Neut # (Auto) 4.6 (1.6-8.3) # Lymph # (Auto) 0.9 (0.6-5.0) # [place] # (Auto) 0.7 (0.0-1.3) # Eos # (Auto) 0.3 (0.0-0.8) # Baso # (Auto) 0.0 (0.0-0.2) # Sodium 140 (135-145) mmol/L Potassium 3.7 (3.5-5.3) mmol/L Chloride 108 (100-110) mmol/L Carbon Dioxide 25 (21-32) mmol/L BUN 18 (7-18) mg/dL Creatinine 1.3 (0.70-1.30) mg/dL Est Cr Clr Drug Dosing 40.19 mL/min Estimated GFR (MDRD) 52 L (>60) BUN/Creatinine Ratio 13.8 (9-20) Glucose 96 (80-116) mg/dL Calcium 8.2 L (8.6-10.2) mg/dL Total Bilirubin 0.5 (0.1-1.3) mg/dL AST 23 (5-25) IU/L ALT 28 (12-36) U/L Alkaline Phosphatase 69 (56-112) IU/L Total Protein 6.0 (6.0-8.0) g/dL Albumin 2.3 L (3.2-4.6) g/dL Globulin 3.7 g/dL Albumin/Globulin Ratio 0.6 Samm Results Last 24 Hours: Microbiology 03/25/18 19:38 Gram Stain - Final Drainage - Leg, Right Routine Culture - Preliminary Gram Positive Cocci Med Orders - Current: Current Medications Acetaminophen (Tylenol) 650 mg PO Q4H PRN PRN Reason: Pain (Mild 1-3)/fever Ceftriaxone Sodium (Rocephin) 1,000 mg IV Q24H [facility] Last Admin: 03/28/18 08:07 Dose: 1,000 mg Docusate Sodium (Colace) 100 mg PO BID PRN PRN Reason: Constipation Heparin Sodium (Porcine) (Heparin Sodium) 5,000 units SUBCUT BID [facility] Last Admin: 03/28/18 08:07 Dose: 5,000 units Metoprolol Succinate (Toprol Xl) 25 mg PO DAILY [facility] Last Admin: 03/28/18 08:08 Dose: 25 mg Ondansetron HCl (Zofran Odt) 4 mg PO Q6H PRN PRN Reason: nausea, able to take PO Oxycodone HCl (Oxycodone) 5 mg PO Q4H PRN PRN Reason: Pain (moderate 4-6) Sodium Chloride (Saline Flush) 10 ml FLUSH ASDIRECTED PRN PRN Reason: Keep Vein Open Last Admin: 03/27/18 09:00 Dose: 10 ml Sodium Chloride (Saline Flush) 10 ml FLUSH ASDIRECTED PRN PRN Reason: Keep Vein Open Discontinued Medications Ceftriaxone Sodium (Rocephin) 2 gm IV Q12H [facility] Last Admin: 03/27/18 08:40 Dose: 2 gm Ceftriaxone Sodium 2 gm/ (Sodium Chloride) 100 mls @ 200 mls/hr IV Q12H [facility] Last Admin: 03/26/18 07:39 Dose: 200 mls/hr Sodium Chloride (Normal Saline) 1,000 mls @ 200 mls/hr IV ASDIRECTED [facility] Last Admin: 03/27/18 07:02 Dose: 200 mls/hr Vancomycin HCl 1 gm/ Sodium (Chloride) 250 mls @ 167 mls/hr IV Q24H [facility] Last Admin: 03/25/18 22:09 Dose: 167 mls/hr - Exam General: Alert, Oriented, Cooperative HEENT: Pupils Equal, Pupils Reactive Neck: Supple Lungs: Clear to Auscultation, Normal Respiratory Effort Cardiovascular: Regular Rate, Regular Rhythm, No Murmurs GI/Abdominal Exam: Normal Bowel Sounds, Soft, Non-Tender, No Distention Extremities: Pedal Edema (Trace pedal edema on the left. Pedal edema on the right looks similar to yesterday. I did not remove the dressing. Redness remains significantly improved.) Psy/Mental Status: Alert, Normal Affect - Problem List & Annotations (1) Cellulitis of right leg SNOMED Code(s): 258688055 Code(s): L03.115 - CELLULITIS OF RIGHT LOWER LIMB Status: Acute Current Visit: No Annotation/Comment:: Wound culture now shows gram-positive cocci, ID pending. Continue IV Rocephin, dose decreased to 1 gm every 24 hours. Patient has no history of MRSA colonization. Discussed role of compression in preventing future infections. Once we get ID and sensitivities, patient can be discharged home on by mouth medication. (2) CKD (chronic kidney disease) stage 3, GFR 30-59 ml/min SNOMED Code(s): 006824578 Code(s): N18.3 - CHRONIC KIDNEY DISEASE, STAGE 3 (MODERATE) Status: Acute Current Visit: Yes Annotation/Comment:: Avoid renal toxic drugs. Baseline of creatinine 1.6. Currently 1.3. (3) Urinary retention SNOMED Code(s): 596648301 Code(s): R33.9 - RETENTION OF URINE, UNSPECIFIED Status: Acute Current Visit: No Annotation/Comment:: Continue Roldan catheter. Patient's surgery will need to be pushed back until he has completed his antibiotic therapy. (4) DVT prophylaxis SNOMED Code(s): 512478147, 429621376 Code(s): XJD1057 - Status: Acute Current Visit: Yes Annotation/Comment :: Lovenox, SCDs, mobilization as patient tolerates. - Problem List Review Problem List Initiated/Reviewed/Updated: Yes - My Orders Last 24 Hours: My Active Orders 03/27/18 09:00 Metoprolol Succinate [Toprol XL] 25 mg PO DAILY 03/28/18 08:00 cefTRIAXone [Rocephin] 1,000 mg IV Q24H - Plan Plan:: Discussed CODE STATUS with the patient. If his heart were to stop beating or he were to stop breathing, if he were to , he would not want resuscitation. "Just let me go". If he were to have a severe pneumonia and be unable to survive unless he was intubated, he would want supportive care and comfort measures even though he knows this would hasten his . He would not want intubation. Thus patient is a DNR/DNI.
[2018-03-29] MEDS: Heparin Sodium 5,000 Units/ML Vial SUBCUT SCH (08:42)
[2018-03-29] MEDS: Sodium Chloride 0.9% 10 ML Syringe FLUSH PRN (08:46)
[2018-03-29] MEDS: cefTRIAXone 1,000 MG VIAL IV SCH (08:46)
[2018-03-29] MEDS: Metoprolol Succinate 25 MG Tab.ER *PTOM PO SCH (08:52)
--- NOTE | 2018-03-29 11:03 | PCM.DCSUM1 ---
Discharge Summary - Hospital Course Free Text/Narrative:: Date of admission: 03/25/18 Date of discharge: 03/29/18 Admission diagnosis: Right lower extremity cellulitis Discharge diagnosis: same Consults: None Procedures: Right lower extremity ultrasound which was negative for DVT. History of present illness: Patient is an 83-year-old male with chronic venous insufficiency who presented with about 18 hours of redness, swelling, and increased pain in the right lower extremity. He had some bullous blebs forearm due to the significant swelling. He was started on Rocephin and vancomycin and admitted for further treatment of right lower extremity cellulitis. Hospital course: Please see details below for Hospital course by problem. In summary, the patient had significant improvement almost immediately and has edema. He was discontinued off his Vanco and continued on Rocephin. Ultrasound of right lower extremity was negative for DVT. After 3 days of antibiotic therapy the patient' s wound culture started to grow and so patient was maintained on IV antibiotic therapy until culture results were back. This ultimately proved to be a contaminant. Discharge instructions: Patient discharged home, follow-up in one week with PCP, home health to follow for daily dressing changes and teaching regarding compression stockings/Juan wraps. - Discharge Data Discharge Date: 03/29/18 Discharge Disposition: Home, Home Health Agency 06 Condition: Fair - Discharge Diagnosis/Problem(s) (1) Cellulitis of right leg SNOMED Code(s): 157958584 ICD Code: L03.115 - CELLULITIS OF RIGHT LOWER LIMB Status: Acute Current Visit: No Problem Details: Culture grew staph cornii, which was panresistant. Given patient's clinical improvement without antibiotic therapy of this organism, not the causative agent. Spoke with Dr. Ferrer, [facility] who agreed with continuing tx with current abx spectrum. He recommended discharge on Keflext 500 mg PO TID - will complete 10 days of antibiotic therapy. Start first PO dose tomorrow am as received IV rocephin today at 0830. Continue juan wraps or JOSÉ hose for compression and nonstick gauze with daily dressing changes for wound on right leg. (2) CKD (chronic kidney disease) stage 3, GFR 30-59 ml/min SNOMED Code(s): 168404956 ICD Code: N18.3 - CHRONIC KIDNEY DISEASE, STAGE 3 (MODERATE) Status: Acute Current Visit: Yes Problem Details: Avoid renal toxic drugs. Baseline of creatinine 1.6. Creatinine stable. (3) Urinary retention SNOMED Code(s): 640351847 ICD Code: R33.9 - RETENTION OF URINE, UNSPECIFIED Status: Acute Current Visit: No Problem Details: Continue Roldan catheter. Patient's surgery will need to be pushed back until he has completed his antibiotic therapy. (4) DVT prophylaxis SNOMED Code(s): 551915529, [id number] ICD Code: [id number] - Status: Acute Current Visit: Yes Problem Details: Lovenox, SCDs, mobilization as patient tolerates. - Patient Summary/Data Consults: Consultations 03/26/18 15:24 PT Evaluation and Treatment [CONS] Routine Please Evaluate and Treat. PT Reason for Consult: eval and tx, ambulation assessment This query below is only for informational purposes and is not editable. Admission Diagnosis/Problem: Cellulitis of leg - Patient Instructions Diet: Heart Healthy Diet, Low Sodium Wound/Incision Care: Change Dressing Daily (Keep compression stockings or juan wraps on bilaterally during day. This can be worn over the dressing.) Other/Special Instructions: You were admitted for a right lower leg infection. The swelling you have in your legs can often lead to infection. It is important to use compression stockings or Juan wraps when awake during the day to prevent swelling. Home health to follow daily for wound care until seen by Dr. Maradiaga on Thursday. Follow-up with PCP in clinic on Thursday. Take antibiotic pill Keflex 500 mg 3 times a day for the next 5 days. Start this on the eighth as the antibiotic you received in the hospital will last for 24 hours. - Discharge Plan Prescriptions/Med Rec: Cephalexin [Keflex] 500 mg PO TID 5 Days #15 capsule Home Medications: Home Meds Aspirin 325 mg PO DAILY 02/22/18 [History] Multivitamin [Multi-Vitamin Daily] 1 tab PO BEDTIME 02/22/18 [History] Dutasteride [Avodart] 0.5 mg PO DAILY 03/25/18 [History] Tamsulosin HCl 0.4 mg PO DAILY 03/25/18 [History] Metoprolol Succinate 25 mg PO DAILY 03/26/18 [History] Cephalexin [Keflex] 500 mg PO TID 5 Days #15 capsule 03/29/18 [Rx] Patient Handouts: Fall Prevention in the Home, [id number], Chronic Kidney Disease, Adult, [id number], Chronic Venous Insufficiency, Fall Prevention in Hospitals, Adult, Venous Thromboembolism Prevention Forms: ED Department Discharge Referrals: Mario Maradiaga MD [Primary Care Provider] - - General Info Date of Service: 03/29/18 Subjective Update: Patient was feeling very well. He felt his leg had returned to its normal status with improvement in the edema due to using compression stockings in the hospital. No shortness of breath, no chest pain, no nausea or vomiting, no diarrhea from antibiotic therapy. Patient received his last dose of Rocephin at 8:30 AM on the day of discharge. - Patient Data Vitals - Most Recent: Last Vital Signs Temp 36.7 C 03/29/18 08:50 Pulse 85 03/29/18 08:52 Resp 22 H 03/29/18 08:50 BP 160/89 H 03/29/18 08:52 Pulse Ox 98 03/29/18 08:50 Weight - Most Recent: 100.108 kg I&O - Last 24 hours: Intake & Output 03/28/18 03/29/18 03/29/18 22:59 06:59 14:59 Intake Total 200 600 Output Total 800 1825 Balance -800 -1625 600 MAGDIEL Results - Last 24 hrs: Microbiology 03/25/18 19:38 Gram Stain - Final Drainage - Leg, Right Routine Culture - Final Staph. Cohnii Ss Cohnii Med Orders - Current: Current Medications Acetaminophen (Tylenol) 650 mg PO Q4H PRN PRN Reason: Pain (Mild 1-3)/fever Ceftriaxone Sodium (Rocephin) 1,000 mg IV Q24H [facility] Last Admin: 03/29/18 08:46 Dose: 1,000 mg Docusate Sodium (Colace) 100 mg PO BID PRN PRN Reason: Constipation Heparin Sodium (Porcine) (Heparin Sodium) 5,000 units SUBCUT BID [facility] Last Admin: 03/29/18 08:42 Dose: 5,000 units Metoprolol Succinate (Toprol Xl) 25 mg PO DAILY [facility] Last Admin: 03/29/18 08:52 Dose: 25 mg Ondansetron HCl (Zofran Odt) 4 mg PO Q6H PRN PRN Reason: nausea, able to take PO Oxycodone HCl (Oxycodone) 5 mg PO Q4H PRN PRN Reason: Pain (moderate 4-6) Sodium Chloride (Saline Flush) 10 ml FLUSH ASDIRECTED PRN PRN Reason: Keep Vein Open Last Admin: 03/29/18 08:46 Dose: 10 ml Sodium Chloride (Saline Flush) 10 ml FLUSH ASDIRECTED PRN PRN Reason: Keep Vein Open Discontinued Medications Ceftriaxone Sodium (Rocephin) 2 gm IV Q12H [facility] Last Admin: 03/27/18 08:40 Dose: 2 gm Ceftriaxone Sodium 2 gm/ (Sodium Chloride) 100 mls @ 200 mls/hr IV Q12H [facility] Last Admin: 03/26/18 07:39 Dose: 200 mls/hr Sodium Chloride (Normal Saline) 1,000 mls @ 200 mls/hr IV ASDIRECTED [facility] Last Admin: 03/27/18 07:02 Dose: 200 mls/hr Vancomycin HCl 1 gm/ Sodium (Chloride) 250 mls @ 167 mls/hr IV Q24H [facility] Last Admin: 03/25/18 22:09 Dose: 167 mls/hr - Exam General: Reports: Alert, Oriented, Cooperative, No Acute Distress HEENT: Reports: Pupils Equal, Pupils Reactive Neck: Reports: Supple Lungs: Reports: Clear to Auscultation, Normal Respiratory Effort Cardiovascular: Reports: Regular Rate, Regular Rhythm, No Murmurs GI/Abdominal Exam: Normal Bowel Sounds, Soft, Non-Tender, No Distention Extremities: Pedal Edema (Pedal edema significantly improved bilaterally. The wound is healing very well. Erythema improved back to baseline per patient's report.) Wound/Incisions: Reports: Healing Well Psy/Mental Status: Reports: Alert
== END 2018-04-02 14:46 | disposition home or self-care (01) | DRG 603 ==
LOC: FB.ED 18:50 → FB.MS 19:42 → UNDOADMOB 19:42 → OBSVTOIN 03-27 16:04 → FB.MS 03-27 16:04 → INTOOBSV 03-28 16:04 → OBSVTOIN 03-28 16:04 → UNDODISIN 03-29 12:15
PROVIDERS: ADMIT Family Medicine; ATTEND Family Medicine
DX: L03.115 Cellulitis of right lower limb (principal); I87.2 Venous insufficiency (chronic) (peripheral); I87.8 Other specified disorders of veins; Z66 Do not resuscitate; I12.9 Hypertensive chronic kidney disease with stage 1 through stage 4 chronic kidney disease, or unspecified chronic kidney disease; N18.3 Chronic kidney disease, stage 3 (moderate); M79.661 Pain in right lower leg; M79.89 Other specified soft tissue disorders; N40.1 Benign prostatic hyperplasia with lower urinary tract symptoms; R33.8 Other retention of urine; Z89.422 Acquired absence of other left toe(s); Z89.412 Acquired absence of left great toe; H54.7 Unspecified visual loss; G62.9 Polyneuropathy, unspecified; Z87.891 Personal history of nicotine dependence; Z86.79 Personal history of other diseases of the circulatory system; Z79.82 Long term (current) use of aspirin; Z88.8 Allergy status to other drugs, medicaments and biological substances
CPT/HCPCS: 36415 ×3; 80048; 80053 ×2; 83605; 85025 ×3; 85379; 85610; 87070; 87077; 87205; 93971; 96361 ×3; 96365; 96366; 96367; 96372 ×3; 96375; 96376 ×2; 99284; A9270 ×2; G0378 ×3; J0696 ×5; J1644 ×4; J3370; J7030 ×2; J7040 ×7; J7050 ×2; 87186

== ENCOUNTER 2018-04-20 20:18 | Observation (INO) | payer MEDICARE, OTHER ==
--- NOTE | 2018-04-20 20:43 | EDM.PDOC ---
ED HPI GENERAL MEDICAL PROBLEM - General Stated Complaint: BLEEDING Time Seen by Provider: 04/20/18 20:20 Source of Information: Reports: Patient, EMS, Family History Limitations: Reports: Physical Impairment - History of Present Illness INITIAL COMMENTS - FREE TEXT/NARRATIVE: 83 y.o.w.f with a h/o lower leg cellulitis, cachexia, came to the ed by ems due to ant nose bleed since 1 am. Pt filled up severe coffee cups of blood. Pt is too week to ambulate. Pt is a poor historian, no family was present at first, daughter arrived later. BP 137/78 Temp 36.6 pulse 76 O2 sat 95 % on RA Onset Date: 04/20/18 Onset Time: 02:00 Duration: Hour(s):, Getting Worse, Intermittent Location: Reports: Face Quality: Reports: Other (nose bleed) Improves with: Reports: None Worsens with: Reports: Movement Context: Reports: Other Associated Symptoms: Reports: Loss of Appetite, Weakness - Related Data Allergies Allergy/AdvReac Type Severity Reaction Status Date / Time simvastatin [From Zocor] Allergy Cannot Verified 04/20/18 20:35 Remember Home Meds: Home Meds Multivitamin [Multi-Vitamin Daily] 1 tab PO BEDTIME 02/22/18 [History] Dutasteride [Avodart] 0.5 mg PO DAILY 03/25/18 [History] Tamsulosin HCl 0.4 mg PO DAILY 03/25/18 [History] Metoprolol Succinate 25 mg PO DAILY 03/26/18 [History] Sodium Chloride [Saline Nasal [place]] 1 spray NASBOTH DAILY PRN 04/20/18 [History ] Past Medical History HEENT History: Reports: Impaired Vision Cardiovascular History: Reports: Hypertension, Other (See Below) (chronic venous insufficiency both legs) Other Cardiovascular History: Peripheral vascular disease Gastrointestinal History: Reports: PUD Genitourinary History: Reports: Other (See Below) Other Genitourinary History: hx of blood in urine Musculoskeletal History: Reports: Amputation Other Musculoskeletal History: 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 Dried blisters left lower leg. bilateral lower legs purple/blue in color with +1-2 edema. Denies pain due to neuropathy. - Infectious Disease History Infectious Disease History: Reports: Chicken Pox, Measles - Past Surgical History Musculoskeletal Surgical History: Reports: Amputation Social & Family History - Family History Family Medical History: Noncontributory - Caffeine Use Caffeine Use: Reports: Coffee ED ROS ENT - Review of Systems Review Of Systems: Unable To Obtain ED EXAM, ENT - Physical Exam Exam: See Below Exam Limited By: Physical Impairment General Appearance: Alert, Moderate Distress, Cachetic Eye Exam: Bilateral Eye: Normal Inspection Ears: Normal External Exam, Normal Canal Nose: Foreign Body, Active Bleeding, Dried Blood Mouth/Throat: Dental Tenderness, Dry Mucous Membrane, Gum Swelling Head: Atraumatic, Normocephalic Neck: Normal Inspection, Supple, Non-Tender, Full Range of Motion Respiratory/Chest: No Respiratory Distress, Lungs Clear (pooe insp effort) Cardiovascular: Normal Peripheral Pulses, Regular Rate, Rhythm GI/Abdominal: Normal Bowel Sounds, Soft, Non-Tender, No Organomegaly, No Abnormal Bruit (Male) Exam: Deferred Rectal (Males) Exam: Black Stool Back: Normal Inspection, Full Range of Motion Extremities: Redness Neurological: Alert, Oriented, CN II-XII Intact Psychiatric: Normal Affect, Normal Mood Skin: Warm, Dry, Pallor Lymphatic: No Adenopathy Course - Vital Signs Text/Narrative:: 83 y.o.w.f with a h/o lower leg cellulitis, cachexia, came to the ed by ems due to ant nose bleed since 1 am. Pt filled up severe coffee cups of blood. Pt is too week to ambulate. Pt is a poor historian, no family was present at first, daughter arrived later. BP 137/78 Temp 36.6 pulse 76 O2 sat 95 % on RA PE: weak, pain 83 y.o.w.m with ant nose bleed Labs: HGB 7.6 Impression: Anemia, nael ant epistaxis, weakness lower ext cellulitis Tx: Afrin nasal spray ordere 2 units of PRBC Reexam: Nose bleed subsided. 9.45 pm Consultation: Dr. Burton, Hospitalist; Accepted the pt for admission Plan: Admit to [place] obs Last Recorded V/S: Last Vital Signs Temp 36.6 C 04/21/18 12:40 Pulse 86 04/21/18 12:40 Resp 16 04/21/18 12:40 BP 114/64 04/21/18 12:40 Pulse Ox 97 04/21/18 12:40 - Orders/Labs/Meds Labs: Laboratory Tests 04/20/18 04/20/18 04/20/18 Range/Units 20:55 21:00 21:00 WBC 11.4 (4.5-12.0) X10-3/uL RBC 2.60 L (4.30-5.75) x10(6)uL Hgb 7.6 L D (11.5-15.5) g/dL Hct 22.9 L D (30.0-51.3) % MCV 88.0 (80-96) fL MCH 29.4 (27.7-33.6) pg MCHC 33.4 (32.2-35.4) g/dL RDW 15.5 (11.5-15.5) % Plt Count 218 (125-369) X10(3)uL MPV 9.0 (7.4-10.4) fL Neut % (Auto) 86.4 H (46-82) % Lymph % (Auto) 7.7 L (13-37) % [place] % (Auto) 5.5 (4-12) % Eos % (Auto) 0 L (1.0-5.0) % Baso % (Auto) 0 (0-2) % Neut # (Auto) 9.9 H (1.6-8.3) # Lymph # (Auto) 0.9 (0.6-5.0) # [place] # (Auto) 0.6 (0.0-1.3) # Eos # (Auto) 0.0 (0.0-0.8) # Baso # (Auto) 0.0 (0.0-0.2) # PT (8.7-11.1) INR (0.89-1.13) Sodium 142 (135-145) mmol/L Potassium 3.8 (3.5-5.3) mmol/L Chloride 106 (100-110) mmol/L Carbon Dioxide 26 (21-32) mmol/L BUN 38 H D (7-18) mg/dL Creatinine 1.9 H (0.70-1.30) mg/dL Est Cr Clr Drug Dosing 29.35 mL/min Estimated GFR (MDRD) 34 L (>60) BUN/Creatinine Ratio 20.0 (9-20) Glucose 91 (80-116) mg/dL Calcium 8.6 (8.6-10.2) mg/dL Blood Type A POSITIVE Gel Antibody Screen Negative Crossmatch See Detail 04/20/18 Range/Units 21:00 WBC (4.5-12.0) X10-3/uL RBC (4.30-5.75) x10(6)uL Hgb (11.5-15.5) g/dL Hct (30.0-51.3) % MCV (80-96) fL MCH (27.7-33.6) pg MCHC (32.2-35.4) g/dL RDW (11.5-15.5) % Plt Count (125-369) X10(3)uL MPV (7.4-10.4) fL Neut % (Auto) (46-82) % Lymph % (Auto) (13-37) % [place] % (Auto) (4-12) % Eos % (Auto) (1.0-5.0) % Baso % (Auto) (0-2) % Neut # (Auto) (1.6-8.3) # Lymph # (Auto) (0.6-5.0) # [place] # (Auto) (0.0-1.3) # Eos # (Auto) (0.0-0.8) # Baso # (Auto) (0.0-0.2) # PT 10.2 (8.7-11.1) INR 1.05 (0.89-1.13) Sodium (135-145) mmol/L Potassium (3.5-5.3) mmol/L Chloride (100-110) mmol/L Carbon Dioxide (21-32) mmol/L BUN (7-18) mg/dL Creatinine (0.70-1.30) mg/dL Est Cr Clr Drug Dosing mL/min Estimated GFR (MDRD) (>60) BUN/Creatinine Ratio (9-20) Glucose (80-116) mg/dL Calcium (8.6-10.2) mg/dL Blood Type Gel Antibody Screen Crossmatch Meds: Medications Discontinued Medications Generic Name Dose Route Start Last Admin Trade Name Freq PRN Reason Stop Dose Admin Pantoprazole Sodium 80 mg/ 100 mls @ 200 mls/hr 04/20/18 22:19 04/21/18 02:25 Sodium Chloride IV 04/20/18 22:48 Not Given .BOLUS ONE Sodium Chloride 250 mls @ 100 mls/hr 04/20/18 22:30 04/20/18 22:55 Normal Saline IV 100 mls/hr ASDIRECTED CHRISTO Administration Pantoprazole Sodium 80 mg 04/21/18 01:40 04/21/18 01:48 Protonix Iv IVPUSH 04/21/18 01:41 80 mg .BOLUS ONE Administration Sodium Chloride 10 ml 04/21/18 05:17 04/21/18 05:37 Saline Flush FLUSH 10 ml ASDIRECTED PRN Administration Keep Vein Open Departure - Departure Time of Disposition: 19:24 Disposition: Refer to Observation Condition: Fair Clinical Impression: Bleeding nose - Discharge Information
[2018-04-20] MEDS ORDERED: Pantoprazole 80 MG in Sodium Chloride 0.9% 100 ML IV ONE (22:19)
[2018-04-20] MEDS ORDERED: Sodium Chloride 0.9% 250 ML IV SCH (22:30)
[2018-04-21] MEDS ORDERED: Pantoprazole 40 MG Vial IVPUSH ONE (01:40)
[2018-04-21] MEDS ORDERED: Sodium Chloride 0.9% 10 ML Syringe FLUSH PRN (05:17)
--- NOTE | 2018-04-21 09:18 | PCM.HP ---
H&P History of Present Illness - General Date of Service: 04/21/18 Admit Problem/Dx: Admission Diagnosis/Problem Admission Diagnosis/Problem Anemia Source of Information: Old Records History Limitations: Reports: Language Barrier - History of Present Illness Initial Comments - Free Text/Narative: Darling was admitted last night because of anemia, and blood loss from epistaxis. According to the records eat lead for almost 16 hours intermittently feeling several cups with blood. He was feeling too weak to go back home after cauterization and was admitted for observation. His past history includes cellulitis of the next images, chronic kidney disease, his last hemoglobin in February was 13.9. This morning he feels better strong complains of no further bleeding and has no chest pain or shortness of breath. He further denies any other bleeding areas e.g. hematuria or blood in stool or hematemesis. His past history is consistent coronary disease hypertension that previously well controlled. He only takes aspirin for secondary prevention. - Related Data Allergies/Adverse Reactions: Allergies Allergy/AdvReac Type Severity Reaction Status Date / Time simvastatin [From Zocor] Allergy Cannot Verified 04/20/18 20:35 Remember Home Medications: Home Meds Multivitamin [Multi-Vitamin Daily] 1 tab PO BEDTIME 02/22/18 [History] Dutasteride [Avodart] 0.5 mg PO DAILY 03/25/18 [History] Tamsulosin HCl 0.4 mg PO DAILY 03/25/18 [History] Metoprolol Succinate 25 mg PO DAILY 03/26/18 [History] Sodium Chloride [Saline Nasal [place]] 1 spray NASBOTH DAILY PRN 04/20/18 [History ] Past Medical History HEENT History: Reports: Impaired Vision Cardiovascular History: Reports: Hypertension, Other (See Below) (chronic venous insufficiency both legs) Other Cardiovascular History: Peripheral vascular disease Gastrointestinal History: Reports: PUD Genitourinary History: Reports: Other (See Below) Other Genitourinary History: hx of blood in urine Musculoskeletal History: Reports: Amputation Other Musculoskeletal History: 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 Dried blisters left lower leg. bilateral lower legs purple/blue in color with +1-2 edema. Denies pain due to neuropathy. - Infectious Disease History Infectious Disease History: Reports: Chicken Pox, Measles - Past Surgical History Musculoskeletal Surgical History: Reports: Amputation Social & Family History - Family History Family Medical History: Noncontributory - Tobacco Use Smoking Status *Q: Former Smoker Years of Tobacco use: 40 Packs/Tins Daily: 1 Used Tobacco, but Quit: Yes Month/Year Tobacco Last Used: 1990 - Caffeine Use Caffeine Use: Reports: Coffee - Recreational Drug Use Recreational Drug Use: No H&P Review of Systems - Review of Systems: Review Of Systems: Unable To Obtain Exam - Exam Exam: See Below - Vital Signs Vital Signs: Last Vital Signs Temp 97.7 F 04/21/18 07:51 Pulse 62 04/21/18 07:51 Resp 20 04/21/18 07:51 BP 126/51 L 04/21/18 07:51 Pulse Ox 100 04/21/18 07:51 Weight: 76.521 kg - Exam General: Alert HEENT: PERRLA, Hearing Intact, Mucosa Moist & [place], Nares Patent, Normal Nasal Septum, Posterior Pharynx Clear, Conjunctiva Clear, EOMI, EACs Clear, TMs Clear Neck: Supple, Trachea Midline, 2 Lungs: Clear to Auscultation, Normal Respiratory Effort Cardiovascular: Regular Rate, Regular Rhythm GI/Abdominal Exam: Normal Bowel Sounds, Soft, Non-Tender, No Organomegaly, No Distention, No Abnormal Bruit, No Mass, Pelvis Stable (Male) Exam: No Hernia, Normal Inspection, Normal Prostate, Circumcised Rectal (Males) Exam: Deferred Skin: Warm Neurological: Cranial Nerves Intact, Reflexes Equal Bilateral Psychiatric: Alert, Normal Affect, Normal Mood - Patient Data Lab Results Last 24 hrs: Laboratory Results - last 24 hr 04/20/18 04/20/18 04/20/18 Range/Units 20:55 21:00 21:00 WBC 11.4 (4.5-12.0) X10-3/uL RBC 2.60 L (4.30-5.75) x10(6)uL Hgb 7.6 L D (11.5-15.5) g/dL Hct 22.9 L D (30.0-51.3) % MCV 88.0 (80-96) fL MCH 29.4 (27.7-33.6) pg MCHC 33.4 (32.2-35.4) g/dL RDW 15.5 (11.5-15.5) % Plt Count 218 (125-369) X10(3)uL MPV 9.0 (7.4-10.4) fL Neut % (Auto) 86.4 H (46-82) % Lymph % (Auto) 7.7 L (13-37) % [place] % (Auto) 5.5 (4-12) % Eos % (Auto) 0 L (1.0-5.0) % Baso % (Auto) 0 (0-2) % Neut # (Auto) 9.9 H (1.6-8.3) # Lymph # (Auto) 0.9 (0.6-5.0) # [place] # (Auto) 0.6 (0.0-1.3) # Eos # (Auto) 0.0 (0.0-0.8) # Baso # (Auto) 0.0 (0.0-0.2) # PT (8.7-11.1) INR (0.89-1.13) Sodium 142 (135-145) mmol/L Potassium 3.8 (3.5-5.3) mmol/L Chloride 106 (100-110) mmol/L Carbon Dioxide 26 (21-32) mmol/L BUN 38 H D (7-18) mg/dL Creatinine 1.9 H (0.70-1.30) mg/dL Est Cr Clr Drug Dosing 29.35 mL/min Estimated GFR (MDRD) 34 L (>60) BUN/Creatinine Ratio 20.0 (9-20) Glucose 91 (80-116) mg/dL Calcium 8.6 (8.6-10.2) mg/dL Blood Type A POSITIVE Gel Antibody Screen Negative Crossmatch See Detail 04/20/18 04/21/18 04/21/18 Range/Units 21:00 07:40 07:40 WBC 9.7 (4.5-12.0) X10-3/uL RBC 3.12 L (4.30-5.75) x10(6)uL Hgb 9.2 L (11.5-15.5) g/dL Hct 27.7 L (30.0-51.3) % MCV 88.9 (80-96) fL MCH 29.4 (27.7-33.6) pg MCHC 33.1 (32.2-35.4) g/dL RDW 15.0 (11.5-15.5) % Plt Count 207 (125-369) X10(3)uL MPV 8.5 (7.4-10.4) fL Neut % (Auto) 75.4 (46-82) % Lymph % (Auto) 15.5 (13-37) % [place] % (Auto) 8.2 (4-12) % Eos % (Auto) 1 (1.0-5.0) % Baso % (Auto) 0 (0-2) % Neut # (Auto) 7.3 (1.6-8.3) # Lymph # (Auto) 1.5 (0.6-5.0) # [place] # (Auto) 0.8 (0.0-1.3) # Eos # (Auto) 0.1 (0.0-0.8) # Baso # (Auto) 0.0 (0.0-0.2) # PT 10.2 (8.7-11.1) INR 1.05 (0.89-1.13) Sodium 139 (135-145) mmol/L Potassium 3.7 (3.5-5.3) mmol/L Chloride 104 (100-110) mmol/L Carbon Dioxide 26 (21-32) mmol/L BUN 34 H (7-18) mg/dL Creatinine 1.8 H (0.70-1.30) mg/dL Est Cr Clr Drug Dosing 30.98 mL/min Estimated GFR (MDRD) 36 L (>60) BUN/Creatinine Ratio 18.9 (9-20) Glucose 87 (80-116) mg/dL Calcium 8.1 L (8.6-10.2) mg/dL Blood Type Gel Antibody Screen Crossmatch Result Diagrams: 04/21/18 07:40 04/21/18 07:40 - Problem List (1) Epistaxis SNOMED Code(s): 775220599 ICD Code: R04.0 - EPISTAXIS Status: Acute Current Visit: Yes (2) Blood loss anemia SNOMED Code(s): 066191117 ICD Code: D50.0 - IRON DEFICIENCY ANEMIA SECONDARY TO BLOOD LOSS (CHRONIC) Status: Acute Current Visit: Yes (3) CKD (chronic kidney disease) SNOMED Code(s): 692392896 ICD Code: N18.9 - CHRONIC KIDNEY DISEASE, UNSPECIFIED Status: Chronic Current Visit: Yes Qualifiers: Chronic kidney disease stage: stage 3 (moderate) Qualified Code(s): N18.3 - Chronic kidney disease, stage 3 (moderate) Problem List Initiated/Reviewed/Updated: Yes Orders Last 24hrs: Active Orders 24 hr Category Date Time Status Patient Status [ADT] Routine ADT 04/20/18 21:48 Active Oxygen Therapy [RC] PRN Care 04/20/18 21:48 Active Vital Signs [RC] 04,08,12,16,20,00 Care 04/20/18 21:48 Active Regular Diet [DIET] Diet 04/21/18 Lunch Active RED BLOOD CELLS LP [BBK] Stat Lab 04/20/18 20:55 Results TYPE AND SCREEN [BBK] Stat Lab 04/20/18 20:55 Results Sodium Chloride 0.9% [Normal Saline] 250 ml Med 04/20/18 22:30 Active IV ASDIRECTED Sodium Chloride 0.9% [Saline Flush] Med 04/21/18 05:17 Active 10 ml FLUSH ASDIRECTED PRN Transfuse PRBC [Transfuse Red Blood Cells] [COMM] Stat Oth 04/20/18 22:26 Ordered Resuscitation Status Routine Resus Stat 04/20/18 21:48 Ordered Medication Orders Sodium Chloride (Normal Saline) 250 mls @ 100 mls/hr IV ASDIRECTED CHRISTO Last Admin: 04/20/18 22:55 Dose: 100 mls/hr Sodium Chloride (Saline Flush) 10 ml FLUSH ASDIRECTED PRN PRN Reason: Keep Vein Open Last Admin: 04/21/18 05:37 Dose: 10 ml Assessment/Plan Comment:: His hemoglobin has come up to 9.2 g/dl after 2 units of PRBCs. Patient is strong today I will discharge him home on his regular medications but I want to be followed up by Thursday with Dr. Maradiaga. I will also send him home health for follow-up vital signs and medications
== END 2018-04-21 14:10 | disposition home health service (06) ==
LOC: FB.ED 20:18 → FB.MS 21:48
PROVIDERS: ADMIT Family Medicine; ATTEND Family Medicine
DX: R04.0 Epistaxis (principal); D50.0 Iron deficiency anemia secondary to blood loss (chronic); I12.9 Hypertensive chronic kidney disease with stage 1 through stage 4 chronic kidney disease, or unspecified chronic kidney disease; N18.3 Chronic kidney disease, stage 3 (moderate); I73.9 Peripheral vascular disease, unspecified; G62.9 Polyneuropathy, unspecified; E66.9 Obesity, unspecified; Z88.8 Allergy status to other drugs, medicaments and biological substances; Z79.899 Other long term (current) drug therapy; Z68.30 Body mass index [BMI] 30.0-30.9, adult; Z87.891 Personal history of nicotine dependence
CPT/HCPCS: 36415; 36430; 80048; 85025; 85610; 86850; 86900; 86901; 86920; 86922; 96374; 99283; C9113; G0378; J7050; P9016

== ENCOUNTER 2018-05-11 17:31 | Inpatient (IN) | payer MEDICARE, OTHER ==
--- NOTE | 2018-05-11 18:15 | EDM.PDOC ---
ED HPI GENERAL MEDICAL PROBLEM - General Stated Complaint: CELLULITIS BOTH LEGS Time Seen by Provider: 05/11/18 17:40 Source of Information: Reports: Patient History Limitations: Reports: No Limitations - History of Present Illness INITIAL COMMENTS - FREE TEXT/NARRATIVE: c/o increase swelling in legs here with daughter, lives alone, daughter reports legs were quite thin 4d ago, now with much inc'd swelling and transudate no f/c/d, no n/v, appetite okay h/o cellulitis 1m ago, in [facility] 2d from 03/27 to 03/29, tx with vanco and ceftriaxone, sent home on cephalexin 500 mg tid x 5d in hospital 1d from 07/21 to 04/21 with epistaxis and hgb 7.6 inc'd to 9.2 after 2u PRBC not on diuretic currently, has dx VSD, no dx HF BUN/creat 18/1.2 from 6w ago, was 34/1.8 from 3w ago culture of transudate 03/27 with few Staph cohnii sensitive to daptomycin, gentamicn, rifampin, vanco pt goes to wound clinic, changed to telfa and juan wraps 4d ago, legs thin then, may have been on Unaboot prior to that on PE there was actually very little transudate now bilateral legs Pain Score (Numeric/FACES): 3 - Related Data Allergies Allergy/AdvReac Type Severity Reaction Status Date / Time simvastatin [From Zocor] Allergy Cannot Verified 04/20/18 20:35 Remember Home Meds: Home Meds Multivitamin [Multi-Vitamin Daily] 1 tab PO DAILY 02/22/18 [History] Dutasteride [Avodart] 0.5 mg PO DAILY 03/25/18 [History] Tamsulosin HCl 0.4 mg PO DAILY 03/25/18 [History] Metoprolol Succinate 25 mg PO DAILY 03/26/18 [History] Sodium Chloride [Saline Nasal [place]] 1 spray NASBOTH DAILY PRN 04/20/18 [History ] Past Medical History HEENT History: Reports: Impaired Vision Cardiovascular History: Reports: Hypertension, Other (See Below) (chronic venous insufficiency both legs) Other Cardiovascular History: Peripheral vascular disease Gastrointestinal History: Reports: PUD Genitourinary History: Reports: Other (See Below) Other Genitourinary History: hx of blood in urine Musculoskeletal History: Reports: Amputation Other Musculoskeletal History: 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 Dried blisters left lower leg. bilateral lower legs purple/blue in color with +1-2 edema. Denies pain due to neuropathy. - Infectious Disease History Infectious Disease History: Reports: Chicken Pox, Measles - Past Surgical History Musculoskeletal Surgical History: Reports: Amputation Social & Family History - Family History Family Medical History: Noncontributory - Caffeine Use Caffeine Use: Reports: Coffee ED ROS GENERAL - Review of Systems Review Of Systems: See Below Constitutional: Reports: No Symptoms HEENT: Reports: No Symptoms Respiratory: Reports: No Symptoms Cardiovascular: Reports: No Symptoms Endocrine: Reports: No Symptoms GI/Abdominal: Reports: No Symptoms : Reports: No Symptoms Musculoskeletal: Reports: No Symptoms Skin: Reports: Other (edema, weeping LEs, little discomfort) Neurological: Reports: No Symptoms Psychiatric: Reports: No Symptoms Hematologic/Lymphatic: Reports: No Symptoms Immunologic: Reports: No Symptoms ED EXAM, SKIN/RASH Exam: See Below Exam Limited By: No Limitations General Appearance: Alert, WD/WN, No Apparent Distress, Other (alert, pleasant, nl speech, answers questions, [place], nontoxic, nonill, cooperative) Eye Exam: Bilateral Eye: Normal Inspection Nose: Normal Inspection, Normal Mucosa, No Blood Throat/Mouth: Normal Inspection, Normal Lips, No Airway Compromise Head: Atraumatic, Normocephalic Neck: Normal Inspection, Supple, Non-Tender, Full Range of Motion Respiratory/Chest: No Respiratory Distress, Lungs Clear, Normal Breath Sounds, No Accessory Muscle Use, Chest Non-Tender Cardiovascular: Regular Rate, Rhythm, No Rub, Other (2/6 SARAH at LSB, quiet precordium) GI/Abdominal: Soft, Non-Tender, No Distention, No Mass Back Exam: Normal Inspection, Full Range of Motion Neurological: Alert, Oriented, CN II-XII Intact, Normal Cognition Psychiatric: Normal Affect, Normal Mood Skin: Other (several telfa pads and Juan wraps on both legs, one Juan had an old stained spot of 10 x 10 cm, both otherwise dry, dark VSD pigment from ankles to just below knees b/l, single 8 x 8 x 6 mm blister with clear fluid on RLE medially, several smaller blisters noted, no actually weeping available for culture, 2 small ulcers under Telfa were swabbed of ~4 x 4 mm size, one on each LE, toes 1-3 missing on L, there is a good 3+ edema of feet and ankles to knees b/l, there is 10 cm of blanchabl erythema above both pigmented areas and just above both Juan wraps, symmetric and b/l, slight warmth) Course - Vital Signs Last Recorded V/S: Last Vital Signs Temp 36.4 C 05/11/18 17:35 Pulse 80 05/11/18 17:35 Resp 15 05/11/18 17:35 BP 133/56 L 05/11/18 17:35 Pulse Ox 99 05/11/18 17:35 - Orders/Labs/Meds Orders: Active Orders 24 hr Category Date Time Status Admission Status [Patient Status] [ADT] Routine ADT 05/11/18 19:40 Ordered EKG Documentation Completion [RC] ASDIRECTED Care 05/11/18 18:06 Active CULTURE BODY FLUID + SMEAR [RM] Stat Lab 05/11/18 18:05 Ordered UA W/MICROSCOPIC [URIN] Stat Lab 05/11/18 18:50 Ordered Sodium Chloride 0.9% [Saline Flush] Med 05/11/18 18:08 Active 10 ml FLUSH ASDIRECTED PRN Saline Lock Insert [OM.PC] Routine Oth 05/11/18 18:08 Ordered EKG 12 Lead [EK] Routine Ther 05/11/18 18:05 Ordered Medication Orders Sodium Chloride (Saline Flush) 10 ml FLUSH ASDIRECTED PRN PRN Reason: Keep Vein Open Last Admin: 05/11/18 19:20 Dose: 10 ml Labs: Laboratory Tests 05/11/18 05/11/18 05/11/18 Range/Units 18:20 18:20 18:20 WBC 6.1 (4.5-12.0) X10-3/uL RBC 3.14 L (4.30-5.75) x10(6)uL Hgb 8.7 L (11.5-15.5) g/dL Hct 27.3 L (30.0-51.3) % MCV 86.8 (80-96) fL MCH 27.8 (27.7-33.6) pg MCHC 32.0 L (32.2-35.4) g/dL RDW 15.5 (11.5-15.5) % Plt Count 142 (125-369) X10(3)uL MPV 8.9 (7.4-10.4) fL Neut % (Auto) 73.6 (46-82) % Lymph % (Auto) 13.7 (13-37) % [place] % (Auto) 9.9 (4-12) % Eos % (Auto) 3 (1.0-5.0) % Baso % (Auto) 0 (0-2) % Neut # (Auto) 4.4 (1.6-8.3) # Lymph # (Auto) 0.8 (0.6-5.0) # [place] # (Auto) 0.6 (0.0-1.3) # Eos # (Auto) 0.2 (0.0-0.8) # Baso # (Auto) 0.0 (0.0-0.2) # PT (8.7-11.1) INR (0.89-1.13) Sodium 141 (135-145) mmol/L Potassium 4.3 (3.5-5.3) mmol/L Chloride 106 (100-110) mmol/L Carbon Dioxide 29 (21-32) mmol/L BUN 26 H (7-18) mg/dL Creatinine 1.5 H (0.70-1.30) mg/dL Est Cr Clr Drug Dosing 37.18 mL/min Estimated GFR (MDRD) 44 L (>60) BUN/Creatinine Ratio 17.3 (9-20) Glucose 97 (80-116) mg/dL Calcium 8.4 L (8.6-10.2) mg/dL Total Bilirubin 0.4 (0.1-1.3) mg/dL AST 17 D (5-25) IU/L ALT 16 D (12-36) U/L Alkaline Phosphatase 61 (56-112) IU/L Troponin I < 0.017 L (<0.017-0.056) ng/mL C-Reactive Protein 0.8 (0.5-0.9) mg/dL NT-Pro-B Natriuret Pep 2602 H* (<=450) pg/mL Total Protein 6.3 (6.0-8.0) g/dL Albumin 2.7 L (3.2-4.6) g/dL Globulin 3.6 g/dL Albumin/Globulin Ratio 0.8 06/19/18 Range/Units 18:20 WBC (4.5-12.0) X10-3/uL RBC (4.30-5.75) x10(6)uL Hgb (11.5-15.5) g/dL Hct (30.0-51.3) % MCV (80-96) fL MCH (27.7-33.6) pg MCHC (32.2-35.4) g/dL RDW (11.5-15.5) % Plt Count (125-369) X10(3)uL MPV (7.4-10.4) fL Neut % (Auto) (46-82) % Lymph % (Auto) (13-37) % [place] % (Auto) (4-12) % Eos % (Auto) (1.0-5.0) % Baso % (Auto) (0-2) % Neut # (Auto) (1.6-8.3) # Lymph # (Auto) (0.6-5.0) # [place] # (Auto) (0.0-1.3) # Eos # (Auto) (0.0-0.8) # Baso # (Auto) (0.0-0.2) # PT 9.9 (8.7-11.1) INR 1.02 (0.89-1.13) Sodium (135-145) mmol/L Potassium (3.5-5.3) mmol/L Chloride (100-110) mmol/L Carbon Dioxide (21-32) mmol/L BUN (7-18) mg/dL Creatinine (0.70-1.30) mg/dL Est Cr Clr Drug Dosing mL/min Estimated GFR (MDRD) (>60) BUN/Creatinine Ratio (9-20) Glucose (80-116) mg/dL Calcium (8.6-10.2) mg/dL Total Bilirubin (0.1-1.3) mg/dL AST (5-25) IU/L ALT (12-36) U/L Alkaline Phosphatase (56-112) IU/L Troponin I (<0.017-0.056) ng/mL C-Reactive Protein (0.5-0.9) mg/dL NT-Pro-B Natriuret Pep (<=450) pg/mL Total Protein (6.0-8.0) g/dL Albumin (3.2-4.6) g/dL Globulin g/dL Albumin/Globulin Ratio Meds: Medications Generic Name Dose Route Start Last Admin Trade Name Freq PRN Reason Stop Dose Admin Sodium Chloride 10 ml 05/11/18 18:08 05/11/18 19:20 Saline Flush FLUSH 10 ml ASDIRECTED PRN Administration Keep Vein Open - Re-Assessments/Exams Free Text/Narrative Re-Assessment/Exam: 05/11/18 19:43 daughter reports pt on dialysis x 3m 1y ago after amputation 3 toes on L, apparently was on furosemide then BUN/creat 26/1.5 now is up form 18/1.3 form 6w ago hgb 8.7 now and down from 9.2 from 2w ago, c/w hemodilution no definite evidence of infection (WBC nl, CRP nl, segs nl, no fever, symmetric swelling), no antbx for now, will monitor, top of red area marked with pen BNP high, no prior dx HF will admit for diuresis and monitoring for possible infection Departure - Departure Time of Disposition: 19:46 Disposition: DC/Tfer to Hospice - Home 50 Condition: Good Clinical Impression: Acute exacerbation of congestive heart failure, Acute on chronic renal failure , Peripheral edema, Venous stasis dermatitis of both lower extremities, Normocytic hypochromic anemia - Discharge Information Referrals: Mario Maradiaga MD [Primary Care Provider] - - My Orders Last 24 Hours: My Active Orders 05/11/18 18:05 CULTURE BODY FLUID + SMEAR [RM] Stat EKG 12 Lead [EK] Routine 05/11/18 18:06 EKG Documentation Completion [RC] ASDIRECTED 05/11/18 18:08 Sodium Chloride 0.9% [Saline Flush] 10 ml FLUSH ASDIRECTED PRN Saline Lock Insert [OM.PC] Routine 05/11/18 18:50 UA W/MICROSCOPIC [URIN] Stat 05/11/18 19:40 Admission Status [Patient Status] [ADT] Routine - Assessment/Plan Last 24 Hours: My Active Orders 05/11/18 18:05 CULTURE BODY FLUID + SMEAR [RM] Stat EKG 12 Lead [EK] Routine 05/11/18 18:06 EKG Documentation Completion [RC] ASDIRECTED 05/11/18 18:08 Sodium Chloride 0.9% [Saline Flush] 10 ml FLUSH ASDIRECTED PRN Saline Lock Insert [OM.PC] Routine 05/11/18 18:50 UA W/MICROSCOPIC [URIN] Stat 05/11/18 19:40 Admission Status [Patient Status] [ADT] Routine
[2018-05-11] MEDS: Sodium Chloride 0.9% 10 ML Syringe FLUSH PRN ×2 (19:20→20:05)
[2018-05-11] MEDS ORDERED: Furosemide 40 MG/4 ML VIAL IVPUSH ONE (19:48)
[2018-05-11] MEDS ORDERED: Ondansetron 4 MG/2 ML SDV IV PRN (19:50)
[2018-05-11] MEDS ORDERED: Acetaminophen 325 MG Tab PO PRN (19:50)
[2018-05-11] MEDS ORDERED: Sodium Chloride 0.65% Nasal Spray 45 ML Bottle NASBOTH PRN (19:54)
[2018-05-11] MEDS ORDERED: Enoxaparin 40 MG/0.4 ML Syringe SUBCUT SCH (20:00)
--- NOTE | 2018-05-12 07:37 | PCM.HP ---
H&P History of Present Illness - General Date of Service: 05/12/18 Admit Problem/Dx: Admission Diagnosis/Problem Admission Diagnosis/Problem Heart failure Source of Information: Patient, Old Records History Limitations: Reports: No Limitations - History of Present Illness Initial Comments - Free Text/Narative: Darling is 83. He was brought in by his daughter because of bilateral leg swelling. This has been noted over the last 4 days, insidious onset,associated minimal pain. He has a known history of chronic venous insufficiency, and was admitted in March because of bilateral leg cellulitis. The patient states that they've also been more swollen and there has been some drainage. Denies any systemic symptoms of fever, chills ,nausea , vomiting or shortness of breath. He has a history of anemia of chronic disease, chronic kidney disease, peripheral neuropathy, or previously stable. bilateral legs Pain Score (Numeric/FACES): 3 - Related Data Allergies/Adverse Reactions: Allergies Allergy/AdvReac Type Severity Reaction Status Date / Time simvastatin [From Zocor] Allergy Cannot Verified 04/20/18 20:35 Remember Home Medications: Home Meds Multivitamin [Multi-Vitamin Daily] 1 tab PO DAILY 02/22/18 [History] Dutasteride [Avodart] 0.5 mg PO DAILY 03/25/18 [History] Tamsulosin HCl 0.4 mg PO DAILY 03/25/18 [History] Metoprolol Succinate 25 mg PO DAILY 03/26/18 [History] Sodium Chloride [Saline Nasal [place]] 1 spray NASBOTH DAILY PRN 04/20/18 [History ] Past Medical History HEENT History: Reports: Impaired Vision Cardiovascular History: Reports: Hypertension, Other (See Below) Other Cardiovascular History: Peripheral vascular disease Gastrointestinal History: Reports: PUD Genitourinary History: Reports: Other (See Below) Other Genitourinary History: hx of blood in urine Musculoskeletal History: Reports: Amputation Other Musculoskeletal History: 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 Dried blisters left lower leg. bilateral lower legs purple/blue in color with +1-2 edema. Denies pain due to neuropathy. - Infectious Disease History Infectious Disease History: Reports: Chicken Pox, Measles - Past Surgical History Musculoskeletal Surgical History: Reports: Amputation Social & Family History - Family History Family Medical History: Noncontributory - Tobacco Use Smoking Status *Q: Former Smoker Years of Tobacco use: 23 Used Tobacco, but Quit: Yes Month/Year Tobacco Last Used: 40 - Caffeine Use Caffeine Use: Reports: Coffee - Recreational Drug Use Recreational Drug Use: No H&P Review of Systems - Review of Systems: Review Of Systems: ROS reveals no pertinent complaints other than HPI. Exam - Exam Exam: See Below - Vital Signs Vital Signs: Last Vital Signs Temp 98.2 F 05/12/18 04:00 Pulse 62 05/12/18 04:00 Resp 20 05/12/18 04:00 BP 111/51 L 05/12/18 04:00 Pulse Ox 99 05/12/18 04:00 Weight: 92.731 kg - Exam General: Alert, Oriented, 4 HEENT: PERRLA, Hearing Intact, Mucosa Moist & [place], Nares Patent, Normal Nasal Septum, Posterior Pharynx Clear, Conjunctiva Clear, EOMI, EACs Clear, TMs Clear Neck: Supple, Trachea Midline, 2 Lungs: Clear to Auscultation, Normal Respiratory Effort Cardiovascular: Regular Rate, Regular Rhythm GI/Abdominal Exam: Normal Bowel Sounds, Soft, Non-Tender, No Organomegaly, No Distention, No Abnormal Bruit, No Mass, Pelvis Stable (Male) Exam: Deferred Rectal (Males) Exam: Deferred Back Exam: Normal Inspection, Full Range of Motion, NT Extremities: Slow Capillary Refill, Leg Pain, Redness, Other (Several open wounds were noted in the anterior right leg. He has amputation of the toes with left. The skin is mottled red and warm to touch.). No: Non-Tender, Pedal Edema Skin: Warm Neurological: Cranial Nerves Intact, Reflexes Equal Bilateral Neuro Extensive - Mental Status: Alert, Oriented x3, Normal Mood/Affect, Normal Cognition Neuro Extensive - Motor, Sensory, Reflexes: CN II-XII Intact, Normal Gait, Normal Reflexes Psychiatric: Alert, Normal Affect, Normal Mood - Patient Data Lab Results Last 24 hrs: Laboratory Results - last 24 hr 05/11/18 05/11/18 05/11/18 Range/Units 18:20 18:20 18:20 WBC 6.1 (4.5-12.0) X10-3/uL RBC 3.14 L (4.30-5.75) x10(6)uL Hgb 8.7 L (11.5-15.5) g/dL Hct 27.3 L (30.0-51.3) % MCV 86.8 (80-96) fL MCH 27.8 (27.7-33.6) pg MCHC 32.0 L (32.2-35.4) g/dL RDW 15.5 (11.5-15.5) % Plt Count 142 (125-369) X10(3)uL MPV 8.9 (7.4-10.4) fL Neut % (Auto) 73.6 (46-82) % Lymph % (Auto) 13.7 (13-37) % [place] % (Auto) 9.9 (4-12) % Eos % (Auto) 3 (1.0-5.0) % Baso % (Auto) 0 (0-2) % Neut # (Auto) 4.4 (1.6-8.3) # Lymph # (Auto) 0.8 (0.6-5.0) # [place] # (Auto) 0.6 (0.0-1.3) # Eos # (Auto) 0.2 (0.0-0.8) # Baso # (Auto) 0.0 (0.0-0.2) # PT (8.7-11.1) INR (0.89-1.13) Sodium 141 (135-145) mmol/L Potassium 4.3 (3.5-5.3) mmol/L Chloride 106 (100-110) mmol/L Carbon Dioxide 29 (21-32) mmol/L BUN 26 H (7-18) mg/dL Creatinine 1.5 H (0.70-1.30) mg/dL Est Cr Clr Drug Dosing 37.18 mL/min Estimated GFR (MDRD) 44 L (>60) BUN/Creatinine Ratio 17.3 (9-20) Glucose 97 (80-116) mg/dL POC Glucose (80-116) mg/dL Calcium 8.4 L (8.6-10.2) mg/dL Total Bilirubin 0.4 (0.1-1.3) mg/dL AST 17 D (5-25) IU/L ALT 16 D (12-36) U/L Alkaline Phosphatase 61 (56-112) IU/L Troponin I < 0.017 L (<0.017-0.056) ng/mL C-Reactive Protein 0.8 (0.5-0.9) mg/dL NT-Pro-B Natriuret Pep 2602 H* (<=450) pg/mL Total Protein 6.3 (6.0-8.0) g/dL Albumin 2.7 L (3.2-4.6) g/dL Globulin 3.6 g/dL Albumin/Globulin Ratio 0.8 Urine Color (YELLOW) Urine Appearance (CLEAR) Urine pH (5.0-6.5) Ur Specific [place] (1.010-1.025) Urine Protein (NEGATIVE) mg/dL Urine Glucose (UA) (NEGATIVE) mg/dL Urine Ketones (NEGATIVE) mg/dL Urine Occult Blood (NEGATIVE) Urine Nitrite (NEGATIVE) Urine Bilirubin (NEGATIVE) Urine Urobilinogen (NEGATIVE) mg/dL Ur Leukocyte Esterase (NEGATIVE) Urine RBC (0) Urine WBC (0) Ur Squamous Epith Cells (NS,R,O) Urine Bacteria (NS) 05/11/18 05/11/18 05/11/18 Range/Units 18:20 18:48 21:18 WBC (4.5-12.0) X10-3/uL RBC (4.30-5.75) x10(6)uL Hgb (11.5-15.5) g/dL Hct (30.0-51.3) % MCV (80-96) fL MCH (27.7-33.6) pg MCHC (32.2-35.4) g/dL RDW (11.5-15.5) % Plt Count (125-369) X10(3)uL MPV (7.4-10.4) fL Neut % (Auto) (46-82) % Lymph % (Auto) (13-37) % [place] % (Auto) (4-12) % Eos % (Auto) (1.0-5.0) % Baso % (Auto) (0-2) % Neut # (Auto) (1.6-8.3) # Lymph # (Auto) (0.6-5.0) # [place] # (Auto) (0.0-1.3) # Eos # (Auto) (0.0-0.8) # Baso # (Auto) (0.0-0.2) # PT 9.9 (8.7-11.1) INR 1.02 (0.89-1.13) Sodium (135-145) mmol/L Potassium (3.5-5.3) mmol/L Chloride (100-110) mmol/L Carbon Dioxide (21-32) mmol/L BUN (7-18) mg/dL Creatinine (0.70-1.30) mg/dL Est Cr Clr Drug Dosing mL/min Estimated GFR (MDRD) (>60) BUN/Creatinine Ratio (9-20) Glucose (80-116) mg/dL POC Glucose 94 (80-116) mg/dL Calcium (8.6-10.2) mg/dL Total Bilirubin (0.1-1.3) mg/dL AST (5-25) IU/L ALT (12-36) U/L Alkaline Phosphatase (56-112) IU/L Troponin I (<0.017-0.056) ng/mL C-Reactive Protein (0.5-0.9) mg/dL NT-Pro-B Natriuret Pep (<=450) pg/mL Total Protein (6.0-8.0) g/dL Albumin (3.2-4.6) g/dL Globulin g/dL Albumin/Globulin Ratio Urine Color Yellow (YELLOW) Urine Appearance Clear (CLEAR) Urine pH 7.0 H (5.0-6.5) Ur Specific [place] 1.005 L (1.010-1.025) Urine Protein Negative (NEGATIVE) mg/dL Urine Glucose (UA) Normal (NEGATIVE) mg/dL Urine Ketones Negative (NEGATIVE) mg/dL Urine Occult Blood Large H (NEGATIVE) Urine Nitrite Negative (NEGATIVE) Urine Bilirubin Negative (NEGATIVE) Urine Urobilinogen Normal (NEGATIVE) mg/dL Ur Leukocyte Esterase Large H (NEGATIVE) Urine RBC 0-5 (0) Urine WBC 10-20 H (0) Ur Squamous Epith Cells Occasional (NS,R,O) Urine Bacteria Few H (NS) 05/12/18 05/12/18 05/12/18 Range/Units 06:30 06:30 06:30 WBC 5.4 (4.5-12.0) X10-3/uL RBC 3.14 L (4.30-5.75) x10(6)uL Hgb 8.7 L (11.5-15.5) g/dL Hct 26.8 L (30.0-51.3) % MCV 85.4 (80-96) fL MCH 27.6 L (27.7-33.6) pg MCHC 32.3 (32.2-35.4) g/dL RDW 15.5 (11.5-15.5) % Plt Count 136 (125-369) X10(3)uL MPV 9.0 (7.4-10.4) fL Neut % (Auto) 68.5 (46-82) % Lymph % (Auto) 17.0 (13-37) % [place] % (Auto) 11.6 (4-12) % Eos % (Auto) 3 (1.0-5.0) % Baso % (Auto) 0 (0-2) % Neut # (Auto) 3.8 (1.6-8.3) # Lymph # (Auto) 0.9 (0.6-5.0) # [place] # (Auto) 0.6 (0.0-1.3) # Eos # (Auto) 0.1 (0.0-0.8) # Baso # (Auto) 0.0 (0.0-0.2) # PT (8.7-11.1) INR (0.89-1.13) Sodium 141 (135-145) mmol/L Potassium 4.0 (3.5-5.3) mmol/L Chloride 106 (100-110) mmol/L Carbon Dioxide 28 (21-32) mmol/L BUN 24 H (7-18) mg/dL Creatinine 1.5 H (0.70-1.30) mg/dL Est Cr Clr Drug Dosing 37.18 mL/min Estimated GFR (MDRD) 44 L (>60) BUN/Creatinine Ratio 16.0 (9-20) Glucose 93 (80-116) mg/dL POC Glucose (80-116) mg/dL Calcium 8.3 L (8.6-10.2) mg/dL Total Bilirubin (0.1-1.3) mg/dL AST (5-25) IU/L ALT (12-36) U/L Alkaline Phosphatase (56-112) IU/L Troponin I (<0.017-0.056) ng/mL C-Reactive Protein 2.5 H (0.5-0.9) mg/dL NT-Pro-B Natriuret Pep (<=450) pg/mL Total Protein (6.0-8.0) g/dL Albumin (3.2-4.6) g/dL Globulin g/dL Albumin/Globulin Ratio Urine Color (YELLOW) Urine Appearance (CLEAR) Urine pH (5.0-6.5) Ur Specific [place] (1.010-1.025) Urine Protein (NEGATIVE) mg/dL Urine Glucose (UA) (NEGATIVE) mg/dL Urine Ketones (NEGATIVE) mg/dL Urine Occult Blood (NEGATIVE) Urine Nitrite (NEGATIVE) Urine Bilirubin (NEGATIVE) Urine Urobilinogen (NEGATIVE) mg/dL Ur Leukocyte Esterase (NEGATIVE) Urine RBC (0) Urine WBC (0) Ur Squamous Epith Cells (NS,R,O) Urine Bacteria (NS) Result Diagrams: 05/12/18 06:30 05/12/18 06:30 Samm Results Last 24 hrs: Microbiology 05/11/18 17:58 Gram Stain - Final Serous Fluid - Problem List (1) Cellulitis SNOMED Code(s): 261321605 ICD Code: L03.90 - CELLULITIS, UNSPECIFIED Status: Acute Current Visit: Yes Qualifiers: Site of cellulitis: extremity Site of cellulitis of extremity: lower extremity Laterality: unspecified laterality Qualified Code(s): L03.119 - Cellulitis of unspecified part of limb (2) Venous insufficiency SNOMED Code(s): 55276883 ICD Code: I87.2 - VENOUS INSUFFICIENCY (CHRONIC) (PERIPHERAL) Status: Acute Current Visit: Yes (3) Anemia, chronic disease SNOMED Code(s): 794953962 ICD Code: D63.8 - ANEMIA IN OTHER CHRONIC DISEASES CLASSIFIED ELSEWHERE Status: Chronic Current Visit: Yes (4) CKD (chronic kidney disease) SNOMED Code(s): 527947391 ICD Code: N18.9 - CHRONIC KIDNEY DISEASE, UNSPECIFIED Status: Chronic Current Visit: No Qualifiers: Chronic kidney disease stage: stage 3 (moderate) Qualified Code(s): N18.3 - Chronic kidney disease, stage 3 (moderate) (5) BPH (benign prostatic hyperplasia) SNOMED Code(s): 029790353 ICD Code: N40.0 - BENIGN PROSTATIC HYPERPLASIA WITHOUT LOWER URINRY TRACT SYMP Status: Acute Current Visit: Yes Qualifiers: Lower urinary tract symptom detail: unspecified Problem List Initiated/Reviewed/Updated: Yes Orders Last 24hrs: Active Orders 24 hr Category Date Time Status Admission Status [Patient Status] [ADT] Routine ADT 05/11/18 19:40 Active Blood Glucose Check, Bedside [RC] WITHMEALSANDBED Care 05/11/18 19:50 Active EKG Documentation Completion [RC] ASDIRECTED Care 05/11/18 18:06 Active Height and Weight [RC] DAILY Care 05/11/18 19:50 Active Intake and Output [RC] ,, Care 05/11/18 19:51 Active Oxygen Therapy [RC] PRN Care 05/11/18 19:50 Active Up With Assistance [RC] ASDIRECTED Care 05/11/18 19:50 Active VTE/DVT Education [RC] Per Unit Routine Care 05/11/18 19:50 Active Vital Signs [RC] Q4H Care 05/11/18 19:50 Active PT Evaluation and Treatment [CONS] Routine Cons 05/12/18 07:29 Ordered Heart Healthy Diet [DIET] Diet 05/12/18 Breakfast Active BASIC METABOLIC PANEL,BMP [CHEM] AM Lab 05/13/18 05:11 Ordered BASIC METABOLIC PANEL,BMP [CHEM] AM Lab 05/14/18 05:11 Ordered CBC WITH AUTO DIFF [HEME] AM Lab 05/13/18 05:11 Ordered CBC WITH AUTO DIFF [HEME] AM Lab 05/14/18 05:11 Ordered COMPREHENSIVE METABOLIC PN,CMP [CHEM] AM Lab 05/13/18 05:11 Ordered CULTURE ROUTINE + SMEAR [RM] Stat Lab 05/11/18 17:58 Results CULTURE URINE [RM] Routine Lab 05/11/18 18:48 Received ESR [SEDIMENTATION RATE MANUAL] [HEME] AM Lab 05/13/18 05:11 Ordered GLYCOSYLATED HEMOGLOBIN,HGBA1C [CHEM] Routine Lab 05/12/18 07:28 Ordered UA W/MICROSCOPIC [URIN] Stat Lab 05/11/18 18:48 Ordered Acetaminophen [Tylenol] Med 05/11/18 19:50 Active 650 mg PO Q4H PRN Dutasteride [Avodart] Med 05/12/18 09:00 Active 0.5 mg PO DAILY Enoxaparin [Lovenox] Med 05/11/18 20:00 Active 40 mg SUBCUT Q24H Metoprolol Succinate [Toprol XL] Med 05/12/18 09:00 Active 25 mg PO DAILY Multivitamins [Tab-A-Kay[place]] Med 05/12/18 09:00 Active 1 tab PO DAILY Ondansetron [Zofran] Med 05/11/18 19:50 Active 4 mg IV Q4H PRN Sodium Chloride 0.65% [[place] Nasal [place]] Med 05/11/18 19:54 Active 0 ml NASBOTH DAILY PRN Sodium Chloride 0.9% [Saline Flush] Med 05/11/18 18:08 Active 10 ml FLUSH ASDIRECTED PRN Tamsulosin [Flomax] Med 05/12/18 09:00 Active 0.4 mg PO DAILY cefTRIAXone [Rocephin] Med 05/12/18 07:30 Ordered 1,000 mg IVPUSH Q24H Saline Lock Insert [OM.PC] Routine Oth 05/11/18 18:08 Ordered Resuscitation Status Routine Resus Stat 05/11/18 19:50 Ordered EKG 12 Lead [EK] Routine Ther 05/11/18 18:05 Ordered Medication Orders Acetaminophen (Tylenol) 650 mg PO Q4H PRN PRN Reason: Pain (Mild 1-3)/fever Ceftriaxone Sodium (Rocephin) 1,000 mg IVPUSH Q24H [facility] Dutasteride (Avodart) 0.5 mg PO DAILY [facility] Enoxaparin Sodium (Lovenox) 40 mg SUBCUT Q24H [facility] Last Admin: 05/11/18 20:57 Dose: 40 mg Metoprolol Succinate (Toprol Xl) 25 mg PO DAILY [facility] Multivitamins/Minerals/Vitamin C (Tab-A-Kay[place]) 1 tab PO DAILY [facility] Ondansetron HCl (Zofran) 4 mg IV Q4H PRN PRN Reason: Nausea/Vomiting Sodium Chloride (Saline Flush) 10 ml FLUSH ASDIRECTED PRN PRN Reason: Keep Vein Open Last Admin: 05/11/18 20:05 Dose: 10 ml Admin: 05/11/18 19:20 Dose: 10 ml Sodium Chloride ([place] Nasal [place]) 0 ml NASBOTH DAILY PRN PRN Reason: Dryness Tamsulosin HCl (Flomax) 0.4 mg PO DAILY [facility] Assessment/Plan Comment:: Admit the patient, mostly for wound care. I have started Rocephin 1 g IV for cellulitis. I requested a consultation with physical therapy. The rest of the home medications were continued.
[2018-05-12] MEDS: Tamsulosin 0.4 MG Cap.ER PO SCH (08:49)
[2018-05-12] MEDS: Dutasteride 0.5 MG Cap PO SCH (08:49)
[2018-05-12] MEDS: Metoprolol Succinate 25 MG Tab.ER PO SCH (08:50)
[2018-05-12] MEDS: Multivitamin Tab PO SCH (08:50)
[2018-05-12] MEDS: cefTRIAXone 1,000 MG VIAL IVPUSH SCH (08:51)
[2018-05-12] MEDS: Sodium Chloride 0.9% 10 ML Syringe FLUSH PRN (08:54)
[2018-05-12] MEDS: Silver Sulfadiazine 1% Crm 50 GM Tube TOP SCH (12:15)
[2018-05-12] MEDS: Enoxaparin 30 MG/0.3 ML Syringe SUBCUT SCH (20:59)
[2018-05-13] MEDS: Dutasteride 0.5 MG Cap PO SCH (08:05)
[2018-05-13] MEDS: cefTRIAXone 1,000 MG VIAL IVPUSH SCH (08:05)
[2018-05-13] MEDS: Multivitamin Tab PO SCH (08:06)
[2018-05-13] MEDS: Silver Sulfadiazine 1% Crm 50 GM Tube TOP SCH (08:06)
[2018-05-13] MEDS: Tamsulosin 0.4 MG Cap.ER PO SCH (08:06)
[2018-05-13] MEDS: Metoprolol Succinate 25 MG Tab.ER PO SCH (08:07)
--- NOTE | 2018-05-13 09:26 | PCM.PN ---
- General Info Date of Service: 05/13/18 Subjective Update: Feels better this morning. The swelling has improved, physical therapy has been working with him. Complains of mild dizziness when he ambulates has no systemic symptoms of chest pain shortness of breath or fever. Functional Status: Reports: Tolerating Diet - Patient Data Vitals - Most Recent: Last Vital Signs Temp 97.6 F 05/13/18 08:00 Pulse 70 05/13/18 08:07 Resp 20 05/13/18 08:00 BP 123/68 05/13/18 08:07 Pulse Ox 98 05/13/18 08:00 Weight - Most Recent: 92.731 kg I&O - Last 24 Hours: Intake & Output 05/12/18 05/13/18 05/13/18 22:59 06:59 14:59 Output Total 1000 1100 Balance -1000 -1100 Lab Results Last 24 Hours: Laboratory Results - last 24 hr 05/12/18 05/12/18 05/12/18 Range/Units 11:36 18:25 21:55 WBC (4.5-12.0) X10-3/uL RBC (4.30-5.75) x10(6)uL Hgb (11.5-15.5) g/dL Hct (30.0-51.3) % MCV (80-96) fL MCH (27.7-33.6) pg MCHC (32.2-35.4) g/dL RDW (11.5-15.5) % Plt Count (125-369) X10(3)uL MPV (7.4-10.4) fL Neut % (Auto) (46-82) % Lymph % (Auto) (13-37) % [place] % (Auto) (4-12) % Eos % (Auto) (1.0-5.0) % Baso % (Auto) (0-2) % Neut # (Auto) (1.6-8.3) # Lymph # (Auto) (0.6-5.0) # [place] # (Auto) (0.0-1.3) # Eos # (Auto) (0.0-0.8) # Baso # (Auto) (0.0-0.2) # ESR (0-15) mm/hr Sodium (135-145) mmol/L Potassium (3.5-5.3) mmol/L Chloride (100-110) mmol/L Carbon Dioxide (21-32) mmol/L BUN (7-18) mg/dL Creatinine (0.70-1.30) mg/dL Est Cr Clr Drug Dosing mL/min Estimated GFR (MDRD) (>60) BUN/Creatinine Ratio (9-20) Glucose (80-116) mg/dL POC Glucose 97 95 130 H (80-116) mg/dL Calcium (8.6-10.2) mg/dL Total Bilirubin (0.1-1.3) mg/dL AST (5-25) IU/L ALT (12-36) U/L Alkaline Phosphatase (56-112) IU/L Total Protein (6.0-8.0) g/dL Albumin (3.2-4.6) g/dL Globulin g/dL Albumin/Globulin Ratio 05/13/18 05/13/18 Range/Units 06:00 06:00 WBC 6.1 (4.5-12.0) X10-3/uL RBC 3.36 L (4.30-5.75) x10(6)uL Hgb 9.1 L (11.5-15.5) g/dL Hct 28.8 L (30.0-51.3) % MCV 85.8 (80-96) fL MCH 27.1 L (27.7-33.6) pg MCHC 31.6 L (32.2-35.4) g/dL RDW 15.7 H (11.5-15.5) % Plt Count 150 (125-369) X10(3)uL MPV 8.8 (7.4-10.4) fL Neut % (Auto) 74.1 (46-82) % Lymph % (Auto) 13.8 (13-37) % [place] % (Auto) 9.5 (4-12) % Eos % (Auto) 2 (1.0-5.0) % Baso % (Auto) 0 (0-2) % Neut # (Auto) 4.6 (1.6-8.3) # Lymph # (Auto) 0.8 (0.6-5.0) # [place] # (Auto) 0.6 (0.0-1.3) # Eos # (Auto) 0.1 (0.0-0.8) # Baso # (Auto) 0.0 (0.0-0.2) # ESR 41 H (0-15) mm/hr Sodium 140 (135-145) mmol/L Potassium 4.5 (3.5-5.3) mmol/L Chloride 105 (100-110) mmol/L Carbon Dioxide 28 (21-32) mmol/L BUN 23 H (7-18) mg/dL Creatinine 1.6 H (0.70-1.30) mg/dL Est Cr Clr Drug Dosing 34.85 mL/min Estimated GFR (MDRD) 41 L (>60) BUN/Creatinine Ratio 14.4 (9-20) Glucose 97 (80-116) mg/dL POC Glucose (80-116) mg/dL Calcium 8.1 L (8.6-10.2) mg/dL Total Bilirubin 0.6 (0.1-1.3) mg/dL AST 14 D (5-25) IU/L ALT 14 D (12-36) U/L Alkaline Phosphatase 60 (56-112) IU/L Total Protein 6.2 (6.0-8.0) g/dL Albumin 2.5 L (3.2-4.6) g/dL Globulin 3.7 g/dL Albumin/Globulin Ratio 0.7 Samm Results Last 24 Hours: Microbiology 05/11/18 18:48 Urine Culture - Preliminary Urine, Voided Gram Positive Cocci 05/11/18 17:58 Gram Stain - Final Serous Fluid Routine Culture - Preliminary Gram Positive Cocci Med Orders - Current: Current Medications Acetaminophen (Tylenol) 650 mg PO Q4H PRN PRN Reason: Pain (Mild 1-3)/fever Ceftriaxone Sodium (Rocephin) 1,000 mg IVPUSH Q24H [facility] Last Admin: 05/13/18 08:05 Dose: 1,000 mg Dutasteride (Avodart) 0.5 mg PO DAILY [facility] Last Admin: 05/13/18 08:05 Dose: 0.5 mg Enoxaparin Sodium (Lovenox) 30 mg SUBCUT Q24H [facility] Last Admin: 05/12/18 20:59 Dose: 30 mg Metoprolol Succinate (Toprol Xl) 25 mg PO DAILY [facility] Last Admin: 05/13/18 08:07 Dose: 25 mg Multivitamins/Minerals/Vitamin C (Tab-A-Kaylen) 1 tab PO DAILY [facility] Last Admin: 05/13/18 08:06 Dose: 1 tab Ondansetron HCl (Zofran) 4 mg IV Q4H PRN PRN Reason: Nausea/Vomiting Silver Sulfadiazine (Silvadene 1% Cream 50 Gm) 0 gm TOP DAILY [facility] Last Admin: 05/13/18 08:06 Dose: 1 applic Sodium Chloride (Saline Flush) 10 ml FLUSH ASDIRECTED PRN PRN Reason: Keep Vein Open Last Admin: 05/12/18 08:54 Dose: 10 ml Sodium Chloride ([place] Nasal [place]) 0 ml NASBOTH DAILY PRN PRN Reason: Dryness Tamsulosin HCl (Flomax) 0.4 mg PO DAILY [facility] Last Admin: 05/13/18 08:06 Dose: 0.4 mg Discontinued Medications Enoxaparin Sodium (Lovenox) 40 mg SUBCUT Q24H [facility] Last Admin: 05/11/18 20:57 Dose: 40 mg Furosemide (Lasix) 40 mg IVPUSH NOW ONE Stop: 05/11/18 19:49 Last Admin: 05/11/18 20:02 Dose: 40 mg - Exam General: Alert, Oriented HEENT: Pupils Equal Lungs: Clear to Auscultation Cardiovascular: Regular Rate - Problem List & Annotations (1) Cellulitis SNOMED Code(s): 596235577 Code(s): L03.90 - CELLULITIS, UNSPECIFIED Status: Acute Current Visit: Yes Qualifiers: Site of cellulitis: extremity Site of cellulitis of extremity: lower extremity Laterality: unspecified laterality Qualified Code(s): L03.119 - Cellulitis of unspecified part of limb (2) Venous insufficiency SNOMED Code(s): 72646330 Code(s): I87.2 - VENOUS INSUFFICIENCY (CHRONIC) (PERIPHERAL) Status: Acute Current Visit: Yes (3) Anemia, chronic disease SNOMED Code(s): 910250165 Code(s): D63.8 - ANEMIA IN OTHER CHRONIC DISEASES CLASSIFIED ELSEWHERE Status: Chronic Current Visit: Yes (4) CKD (chronic kidney disease) SNOMED Code(s): 251153615 Code(s): N18.9 - CHRONIC KIDNEY DISEASE, UNSPECIFIED Status: Chronic Current Visit: No Qualifiers: Chronic kidney disease stage: stage 3 (moderate) Qualified Code(s): N18.3 - Chronic kidney disease, stage 3 (moderate) (5) BPH (benign prostatic hyperplasia) SNOMED Code(s): 618167404 Code(s): N40.0 - BENIGN PROSTATIC HYPERPLASIA WITHOUT LOWER URINRY TRACT SYMP Status: Acute Current Visit: Yes Qualifiers: Lower urinary tract symptom detail: unspecified - Problem List Review Problem List Initiated/Reviewed/Updated: Yes - My Orders Last 24 Hours: My Active Orders 05/12/18 11:00 Wound Care [RC] 08,16,00 05/12/18 21:00 Enoxaparin [Lovenox] 30 mg SUBCUT Q24H 05/13/18 09:00 Silver Sulfadiazine [Silvadene 1% Cream 50 GM] 0 gm TOP DAILY - Plan Plan:: I appreciate physical therapy input for wound care. I will continue Rocephin IV for one more day.Keep an eye on his Kidney function as well.
[2018-05-13] MEDS: Enoxaparin 30 MG/0.3 ML Syringe SUBCUT SCH (20:44)
--- NOTE | 2018-05-14 07:58 | PCM.PN ---
- General Info Date of Service: 05/14/18 Admission Dx/Problem (Free Text): Patient without concerns. He has no fevers chills or leg pain. Nurses report that his sores on his legs are improving. It and wrapping swelling down. - Patient Data Vitals - Most Recent: Last Vital Signs Temp 97.5 F 05/13/18 23:55 Pulse 64 05/13/18 23:55 Resp 17 05/13/18 23:55 BP 119/65 05/13/18 23:55 Pulse Ox 99 05/13/18 23:55 Weight - Most Recent: 193 lb 11.2 oz I&O - Last 24 Hours: Intake & Output 05/13/18 05/14/18 05/14/18 22:59 06:59 14:59 Intake Total 400 300 Output Total 600 1400 Balance -200 -1100 Lab Results Last 24 Hours: Laboratory Results - last 24 hr 05/14/18 05/14/18 Range/Units 06:02 06:02 WBC 5.6 (4.5-12.0) X10-3/uL RBC 3.33 L (4.30-5.75) x10(6)uL Hgb 9.0 L (11.5-15.5) g/dL Hct 28.4 L (30.0-51.3) % MCV 85.3 (80-96) fL MCH 27.1 L (27.7-33.6) pg MCHC 31.8 L (32.2-35.4) g/dL RDW 15.6 H (11.5-15.5) % Plt Count 161 (125-369) X10(3)uL MPV 8.2 (7.4-10.4) fL Neut % (Auto) 67.7 (46-82) % Lymph % (Auto) 17.0 (13-37) % Ness % (Auto) 10.6 (4-12) % Eos % (Auto) 4 (1.0-5.0) % Baso % (Auto) 0 (0-2) % Neut # (Auto) 3.9 (1.6-8.3) # Lymph # (Auto) 0.9 (0.6-5.0) # Ness # (Auto) 0.6 (0.0-1.3) # Eos # (Auto) 0.2 (0.0-0.8) # Baso # (Auto) 0.0 (0.0-0.2) # Sodium 139 (135-145) mmol/L Potassium 4.2 (3.5-5.3) mmol/L Chloride 105 (100-110) mmol/L Carbon Dioxide 30 (21-32) mmol/L BUN 24 H (7-18) mg/dL Creatinine 1.5 H (0.70-1.30) mg/dL Est Cr Clr Drug Dosing 37.18 mL/min Estimated GFR (MDRD) 44 L (>60) BUN/Creatinine Ratio 16.0 (9-20) Glucose 92 (80-116) mg/dL Calcium 8.0 L (8.6-10.2) mg/dL Samm Results Last 24 Hours: Microbiology 05/11/18 18:48 Urine Culture - Final Urine, Voided Enterococcus Faecalis 05/11/18 17:58 Gram Stain - Final Serous Fluid Routine Culture - Final Staphylococcus Aureus Med Orders - Current: Current Medications Acetaminophen (Tylenol) 650 mg PO Q4H PRN PRN Reason: Pain (Mild 1-3)/fever Ceftriaxone Sodium (Rocephin) 1,000 mg IVPUSH Q24H [facility] Last Admin: 05/13/18 08:05 Dose: 1,000 mg Dutasteride (Avodart) 0.5 mg PO DAILY [facility] Last Admin: 05/13/18 08:05 Dose: 0.5 mg Enoxaparin Sodium (Lovenox) 30 mg SUBCUT Q24H [facility] Last Admin: 05/13/18 20:44 Dose: 30 mg Metoprolol Succinate (Toprol Xl) 25 mg PO DAILY [facility] Last Admin: 05/13/18 08:07 Dose: 25 mg Multivitamins/Minerals/Vitamin C (Tab-A-Kaylen) 1 tab PO DAILY [facility] Last Admin: 05/13/18 08:06 Dose: 1 tab Ondansetron HCl (Zofran) 4 mg IV Q4H PRN PRN Reason: Nausea/Vomiting Silver Sulfadiazine (Silvadene 1% Cream 50 Gm) 0 gm TOP DAILY [facility] Last Admin: 05/13/18 08:06 Dose: 1 applic Sodium Chloride (Saline Flush) 10 ml FLUSH ASDIRECTED PRN PRN Reason: Keep Vein Open Last Admin: 05/12/18 08:54 Dose: 10 ml Sodium Chloride ([place] Nasal [place]) 0 ml NASBOTH DAILY PRN PRN Reason: Dryness Tamsulosin HCl (Flomax) 0.4 mg PO DAILY [facility] Last Admin: 05/13/18 08:06 Dose: 0.4 mg Discontinued Medications Enoxaparin Sodium (Lovenox) 40 mg SUBCUT Q24H [facility] Last Admin: 05/11/18 20:57 Dose: 40 mg Furosemide (Lasix) 40 mg IVPUSH NOW ONE Stop: 05/11/18 19:49 Last Admin: 05/11/18 20:02 Dose: 40 mg - Exam General: Alert, Oriented Lungs: Normal Respiratory Effort Extremities: No Pedal Edema Skin: Other (Couple open wounds that are very superficial right and left leg less than dime size. No erythema on the legs bilateral.) - Problem List & Annotations (1) Cellulitis SNOMED Code(s): 589381964 Code(s): L03.90 - CELLULITIS, UNSPECIFIED Status: Acute Current Visit: Yes Qualifiers: Site of cellulitis: extremity Site of cellulitis of extremity: lower extremity Laterality: unspecified laterality Qualified Code(s): L03.119 - Cellulitis of unspecified part of limb (2) Normocytic hypochromic anemia SNOMED Code(s): 34951137 Code(s): D50.9 - IRON DEFICIENCY ANEMIA, UNSPECIFIED Status: Acute Current Visit: Yes (3) Peripheral edema SNOMED Code(s): 571863291 Code(s): R60.9 - EDEMA, UNSPECIFIED Status: Acute Current Visit: Yes (4) Venous stasis dermatitis of both lower extremities SNOMED Code(s): 50281131 Code(s): I87.2 - VENOUS INSUFFICIENCY (CHRONIC) (PERIPHERAL) Status: Acute Current Visit: Yes - Problem List Review Problem List Initiated/Reviewed/Updated: Yes - My Orders Last 24 Hours: Discharge to home on Augmentin. Urine growth shows Enterococcus faecalis. He does have indwelling catheter all the time. Wound grew out staph aureus non-MRSA. - Plan Plan:: I appreciate physical therapy input for wound care. I will continue Rocephin IV for one more day.Keep an eye on his Kidney function as well.
--- NOTE | 2018-05-14 08:05 | PCM.DCSUM1 ---
Discharge Summary - Hospital Course Free Text/Narrative:: Hospital course-patient was admitted and put on Rocephin 1 g IV every 24 hours. Wound care was done and there is some some serosanguineous drainage the grew staph aureus [id number]. Urine was done that showed Enterococcus faecalis. Patient has indwelling catheter. All sensitive to ampicillin or amoxicillin. Patient has leg is wrapped and had wound care done. Is a couple sores that were open there were small that he or healing nicely. He had no fevers or chills. No other symptoms. He'll be discharged on Augmentin 875 twice a day. Home health and continues indwelling catheter. He'll see his primary physician Dr. Maradiaga 7-10 days. Brief History: Darling is 83. He was brought in by his daughter because of bilateral leg swelling. This has been noted over the last 4 days, insidious onset,associated minimal pain. He has a known history of chronic venous insufficiency, and was admitted in March because of bilateral leg cellulitis. The patient states that they've also been more swollen and there has been some drainage. Denies any systemic symptoms of fever, chills ,nausea , vomiting or shortness of breath. He has a history of anemia of chronic disease, chronic kidney disease, peripheral neuropathy, or previously stable. Diagnosis: Stroke: No Modified [place] Scale: No Symptoms at All Modified [place] Scale Score: 0 - Discharge Data Discharge Date: 05/14/18 Discharge Disposition: Home, [facility] 06 Condition: Good - Discharge Diagnosis/Problem(s) (1) Cellulitis SNOMED Code(s): 819998575 ICD Code: L03.90 - CELLULITIS, UNSPECIFIED Status: Acute Current Visit: Yes Qualifiers: Site of cellulitis: extremity Site of cellulitis of extremity: lower extremity Laterality: unspecified laterality Qualified Code(s): L03.119 - Cellulitis of unspecified part of limb (2) Normocytic hypochromic anemia SNOMED Code(s): 19694708 ICD Code: D50.9 - IRON DEFICIENCY ANEMIA, UNSPECIFIED Status: Acute Current Visit: Yes (3) Peripheral edema SNOMED Code(s): 553546243 ICD Code: R60.9 - EDEMA, UNSPECIFIED Status: Acute Current Visit: Yes (4) Venous stasis dermatitis of both lower extremities SNOMED Code(s): 05643076 ICD Code: I87.2 - VENOUS INSUFFICIENCY (CHRONIC) (PERIPHERAL) Status: Acute Current Visit: Yes - Patient Summary/Data Consults: Consultations 05/12/18 07:29 PT Evaluation and Treatment [CONS] Routine Please Evaluate and Treat. PT Reason for Consult: Wound Care This query below is only for informational purposes and is not editable. Admission Diagnosis/Problem: Heart failure - Patient Instructions Diet: Regular Diet as Tolerated Activity: As Tolerated Driving: Do Not Drive Showering/Bathing: May Shower Notify Provider of: Fever, Increased Pain, Drainage Other/Special Instructions: 1. Recheck with Dr. Maradiaga in 7-10 days. 2. Continue indwelling Roldan catheter. 3. Home health for disease management. Wrapping legs with Juan wrap's and wound care. - Discharge Plan Prescriptions/Med Rec: Amoxicillin/Potassium Clav [Augmentin 875-125 Tablet] 1 each PO BID #16 tablet Home Medications: Home Meds Multivitamin [Multi-Vitamin Daily] 1 tab PO DAILY 02/22/18 [History] Dutasteride [Avodart] 0.5 mg PO DAILY 03/25/18 [History] Tamsulosin HCl 0.4 mg PO DAILY 03/25/18 [History] Metoprolol Succinate 25 mg PO DAILY 03/26/18 [History] Sodium Chloride [Saline Nasal [place]] 1 spray NASBOTH DAILY PRN 04/20/18 [History ] Amoxicillin/Potassium Clav [Augmentin 875-125 Tablet] 1 each PO BID #16 tablet 05/14/18 [Rx] Patient Handouts: Venous Thromboembolism Prevention Forms: ED Department Discharge Referrals: Mario Maradiaga MD [Primary Care Provider] - - Discharge Summary/Plan Comment DC Time >30 min.: No - Patient Data Vitals - Most Recent: Last Vital Signs Temp 97.5 F 05/13/18 23:55 Pulse 64 05/13/18 23:55 Resp 17 05/13/18 23:55 BP 119/65 05/13/18 23:55 Pulse Ox 99 05/13/18 23:55 Weight - Most Recent: 193 lb 11.2 oz I&O - Last 24 hours: Intake & Output 05/13/18 05/14/18 05/14/18 22:59 06:59 14:59 Intake Total 400 300 Output Total 600 1400 Balance -200 -1100 Lab Results - Last 24 hrs: Laboratory Results - last 24 hr 05/14/18 05/14/18 Range/Units 06:02 06:02 WBC 5.6 (4.5-12.0) X10-3/uL RBC 3.33 L (4.30-5.75) x10(6)uL Hgb 9.0 L (11.5-15.5) g/dL Hct 28.4 L (30.0-51.3) % MCV 85.3 (80-96) fL MCH 27.1 L (27.7-33.6) pg MCHC 31.8 L (32.2-35.4) g/dL RDW 15.6 H (11.5-15.5) % Plt Count 161 (125-369) X10(3)uL MPV 8.2 (7.4-10.4) fL Neut % (Auto) 67.7 (46-82) % Lymph % (Auto) 17.0 (13-37) % [place] % (Auto) 10.6 (4-12) % Eos % (Auto) 4 (1.0-5.0) % Baso % (Auto) 0 (0-2) % Neut # (Auto) 3.9 (1.6-8.3) # Lymph # (Auto) 0.9 (0.6-5.0) # [place] # (Auto) 0.6 (0.0-1.3) # Eos # (Auto) 0.2 (0.0-0.8) # Baso # (Auto) 0.0 (0.0-0.2) # Sodium 139 (135-145) mmol/L Potassium 4.2 (3.5-5.3) mmol/L Chloride 105 (100-110) mmol/L Carbon Dioxide 30 (21-32) mmol/L BUN 24 H (7-18) mg/dL Creatinine 1.5 H (0.70-1.30) mg/dL Est Cr Clr Drug Dosing 37.18 mL/min Estimated GFR (MDRD) 44 L (>60) BUN/Creatinine Ratio 16.0 (9-20) Glucose 92 (80-116) mg/dL Calcium 8.0 L (8.6-10.2) mg/dL MAGDIEL Results - Last 24 hrs: Microbiology 05/11/18 18:48 Urine Culture - Final Urine, Voided Enterococcus Faecalis 05/11/18 17:58 Gram Stain - Final Serous Fluid Routine Culture - Final Staphylococcus Aureus Med Orders - Current: Current Medications Acetaminophen (Tylenol) 650 mg PO Q4H PRN PRN Reason: Pain (Mild 1-3)/fever Ceftriaxone Sodium (Rocephin) 1,000 mg IVPUSH Q24H [facility] BEDS AT [facility] Last Admin: 05/13/18 08:05 Dose: 1,000 mg Dutasteride (Avodart) 0.5 mg PO DAILY [facility] 234 BEDS AT THE [facility] Last Admin: 05/13/18 08:05 Dose: 0.5 mg Enoxaparin Sodium (Lovenox) 30 mg SUBCUT Q24H [facility] 234 BEDS AT THE [facility] Last Admin: 05/13/18 20:44 Dose: 30 mg Metoprolol Succinate (Toprol Xl) 25 mg PO DAILY [facility] 234 BEDS AT THE [facility] Last Admin: 05/13/18 08:07 Dose: 25 mg Multivitamins/Minerals/Vitamin C (Tab-A-Kaylen) 1 tab PO DAILY [facility] 234 BEDS AT [facility] Last Admin: 05/13/18 08:06 Dose: 1 tab Ondansetron HCl (Zofran) 4 mg IV Q4H PRN PRN Reason: Nausea/Vomiting Silver Sulfadiazine (Silvadene 1% Cream 50 Gm) 0 gm TOP DAILY [facility] 234 BEDS AT [facility] Last Admin: 05/13/18 08:06 Dose: 1 applic Sodium Chloride (Saline Flush) 10 ml FLUSH ASDIRECTED PRN PRN Reason: Keep Vein Open Last Admin: 05/12/18 08:54 Dose: 10 ml Sodium Chloride ([place] Nasal [place]) 0 ml NASBOTH DAILY PRN PRN Reason: Dryness Tamsulosin HCl (Flomax) 0.4 mg PO DAILY [facility] 234 BEDS AT [facility] Last Admin: 05/13/18 08:06 Dose: 0.4 mg Discontinued Medications Enoxaparin Sodium (Lovenox) 40 mg SUBCUT Q24H [facility]CLUDE 234 BEDS AT THE [facility] Last Admin: 05/11/18 20:57 Dose: 40 mg Furosemide (Lasix) 40 mg IVPUSH NOW ONE Stop: 05/11/18 19:49 Last Admin: 05/11/18 20:02 Dose: 40 mg
[2018-05-14] MEDS: Tamsulosin 0.4 MG Cap.ER PO SCH (08:22)
[2018-05-14] MEDS: cefTRIAXone 1,000 MG VIAL IVPUSH SCH (08:22)
[2018-05-14] MEDS: Dutasteride 0.5 MG Cap PO SCH (08:22)
[2018-05-14] MEDS: Silver Sulfadiazine 1% Crm 50 GM Tube TOP SCH (08:23)
[2018-05-14] MEDS: Multivitamin Tab PO SCH (08:23)
[2018-05-14] MEDS: Metoprolol Succinate 25 MG Tab.ER PO SCH (08:23)
[2018-05-14] MEDS: Sodium Chloride 0.9% 10 ML Syringe FLUSH PRN (08:24)
== END 2018-05-14 11:35 | disposition home health service (06) | DRG 603 ==
LOC: FB.ED 17:31 → FB.MS 19:40 → OBSVTOIN 05-13 09:43
PROVIDERS: ADMIT Emergency Medicine; ATTEND Family Medicine
DX: L03.116 Cellulitis of left lower limb (principal); T83.511A Infection and inflammatory reaction due to indwelling urethral catheter, initial encounter; L03.115 Cellulitis of right lower limb; D63.8 Anemia in other chronic diseases classified elsewhere; B95.61 Methicillin susceptible Staphylococcus aureus infection as the cause of diseases classified elsewhere; B95.2 Enterococcus as the cause of diseases classified elsewhere; I12.9 Hypertensive chronic kidney disease with stage 1 through stage 4 chronic kidney disease, or unspecified chronic kidney disease; I87.2 Venous insufficiency (chronic) (peripheral); N40.0 Benign prostatic hyperplasia without lower urinary tract symptoms; M79.89 Other specified soft tissue disorders; N18.3 Chronic kidney disease, stage 3 (moderate); D50.9 Iron deficiency anemia, unspecified; Z87.891 Personal history of nicotine dependence; G62.9 Polyneuropathy, unspecified; Z87.11 Personal history of peptic ulcer disease; H54.7 Unspecified visual loss; Z88.8 Allergy status to other drugs, medicaments and biological substances; Z89.412 Acquired absence of left great toe; Z89.422 Acquired absence of other left toe(s); R60.9 Edema, unspecified
CPT/HCPCS: 36415 ×3; 80048; 80053 ×2; 81001; 82962 ×4; 83036; 83880; 84484; 85025 ×3; 85610; 85651; 86140 ×2; 87070; 87077; 87086; 87088; 87205; 93005; 96374; 99285; A9270 ×9; J0696 ×2; J1650 ×2; J1940; J7050 ×3; 87186; 93010; 99283

== ENCOUNTER 2018-12-22 18:26 | Emergency (ER) | payer MEDICARE, OTHER ==
[2018-12-22] MEDS ORDERED: Lidocaine 2% Jelly 30 ML Tube MUCMEM ONE (18:48)
[2018-12-22] MEDS ORDERED: Lidocaine 2% HCl 6 ML JEL.PF.APP ONE (18:53)
--- NOTE | 2018-12-22 19:39 | EDM.PDOC ---
ED HPI GENERAL MEDICAL PROBLEM - General Chief Complaint: Genitourinary Problem Stated Complaint: CATHETER REPLACEMENT Time Seen by Provider: 12/22/18 18:26 Source of Information: Reports: Patient, Family History Limitations: Reports: No Limitations - History of Present Illness INITIAL COMMENTS - FREE TEXT/NARRATIVE: 83 y.o.w.m was brought to the ed by his rn care manager, from the senior living. The nurse at the senior living attempted to change the Roldan catheter and was not successful to place a new new catheter. Pt has an enlarged prostate. An UA was was positive fro the old Roldan catheter. Pt denied pain, F/C/N/VD or any other acute medical issues. BP 151/65 RR 18 Pulse ox 100% on RA, Temp 37.q Pulse 71 Onset Date: 12/22/18 Onset Time: 17:00 Duration: Hour(s): Location: Reports: Pelvis Severity: Mild Improves with: Reports: Rest Worsens with: Reports: Movement Context: Reports: Other (urinary retention) Associated Symptoms: Reports: No Other Symptoms - Related Data Allergies Allergy/AdvReac Type Severity Reaction Status Date / Time aspirin Allergy Bleeding Verified 12/22/18 18:33 simvastatin [From Zocor] Allergy Cannot Verified 04/20/18 20:35 Remember Home Meds: Home Meds Multivitamin [Multi-Vitamin Daily] 1 tab PO DAILY 02/22/18 [History] Dutasteride [Avodart] 0.5 mg PO DAILY 03/25/18 [History] Tamsulosin HCl 0.4 mg PO DAILY 03/25/18 [History] Metoprolol Succinate 25 mg PO DAILY 03/26/18 [History] Sodium Chloride [Saline Nasal [place]] 1 spray NASBOTH DAILY PRN 04/20/18 [History ] Amoxicillin/Potassium Clav [Augmentin 875-125 Tablet] 1 each PO BID #16 tablet 05/14/18 [Rx] Past Medical History HEENT History: Reports: Hard of Hearing, Impaired Vision, Other (See Below) Other HEENT History: R conjunctival hemorrhage Cardiovascular History: Reports: Afib, Arrhythmia, Cardiomyopathy, High Cholesterol, Hypertension, PVD, Other (See Below) Other Cardiovascular History: Peripheral vascular disease Gastrointestinal History: Reports: GI Bleed, PUD Genitourinary History: Reports: BPH, Prostate Disorder, Renal Disease, Retention , Urinary, Other (See Below) Other Genitourinary History: hx of blood in urine Musculoskeletal History: Reports: Amputation, Fracture Other Musculoskeletal History: 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 Dried blisters left lower leg. bilateral lower legs purple/blue in color with +1-2 edema. Denies pain due to neuropathy. - Infectious Disease History Infectious Disease History: Reports: Chicken Pox, Measles, Mumps - Past Surgical History Head Surgeries/Procedures: Reports: None HEENT Surgical History: Reports: Oral Surgery, Tonsillectomy GI Surgical History: Reports: Appendectomy, Cholecystectomy, Colonoscopy Musculoskeletal Surgical History: Reports: Amputation Social & Family History - Family History Family Medical History: Noncontributory - Tobacco Use Smoking Status *Q: Former Smoker Years of Tobacco use: 40 Used Tobacco, but Quit: Yes Month/Year Tobacco Last Used: nov - Caffeine Use Caffeine Use: Reports: Coffee, Tea - Recreational Drug Use Recreational Drug Use: No ED ROS GENERAL - Review of Systems Review Of Systems: See Below Constitutional: Reports: No Symptoms HEENT: Reports: No Symptoms Respiratory: Reports: No Symptoms Cardiovascular: Reports: No Symptoms Endocrine: Reports: No Symptoms GI/Abdominal: Reports: No Symptoms : Reports: No Symptoms Musculoskeletal: Reports: No Symptoms Skin: Reports: No Symptoms Neurological: Reports: No Symptoms Psychiatric: Reports: No Symptoms Hematologic/Lymphatic: Reports: No Symptoms Immunologic: Reports: No Symptoms ED EXAM, RENAL/ - Physical Exam Exam: See Below Exam Limited By: No Limitations General Appearance: Alert, WD/WN, Mild Distress Eye Exam: Bilateral Eye: Normal Inspection Ears: Normal External Exam Nose: Normal Inspection, Normal Mucosa Throat/Mouth: Normal Inspection, Normal Lips, Normal Voice, No Airway Compromise Head: Atraumatic, Normocephalic Neck: Normal Inspection, Supple, Non-Tender, Full Range of Motion Respiratory/Chest: No Respiratory Distress, Lungs Clear, Normal Breath Sounds, Chest Non-Tender Cardiovascular: Normal Peripheral Pulses, Regular Rate, Rhythm, No Edema, No Gallop, No JVD, No Murmur, No Rub GI/Abdominal: Normal Bowel Sounds, Soft, Non-Tender, No Organomegaly, No Distention, No Abnormal Bruit, No Mass, Pelvis Stable (Male) Exam: No Hernia Rectal (Males) Exam: Deferred Back Exam: Normal Inspection, Full Range of Motion Extremities: Normal Inspection Neurological: Alert, Oriented, CN II-XII Intact, Normal Cognition, Normal Gait Psychiatric: Normal Affect, Normal Mood Skin Exam: Warm, Dry, Intact, Normal Color, No Rash Lymphatic: No Adenopathy Course - Vital Signs Text/Narrative:: 83 y.o.w.m was brought to the ed by his rn care manager, from the senior living. The nurse at the senior living attempted to change the Roldan catheter and was not successful to place a new new catheter. Pt has an enlarged prostate. An UA was was positive fro the old Roldan catheter. Pt denied pain, F/C/N/VD or any other acute medical issues. BP 151/65 RR 18 Pulse ox 100% on RA, Temp 37.q Pulse 71 PE: WNWD W M in NAD Labs: UA neg for UTI, Micr hematuria due to traumatic Roldan Cath placement Impression; Roldan cath replacement Procedure: Roldan placement by nurse Reexam: Pt was doing fine in the ED Plan: D/C with instructions Last Recorded V/S: Last Vital Signs Temp 36.1 C 12/22/18 18:26 Pulse 79 12/22/18 18:26 Resp 18 12/22/18 18:26 BP 151/65 H 12/22/18 18:26 Pulse Ox 100 12/22/18 18:26 - Orders/Labs/Meds Orders: Active Orders 24 hr Category Date Time Status Insert Roldan Catheter [Insert Urinary Catheter] [OM.PC] Care 12/22/18 19:05 Ordered Q24H Urinary Catheter Assessment [RC] QSHIFT Care 12/22/18 19:21 Active Labs: Laboratory Tests 12/22/18 Range/Units 19:20 Urine Color Other (YELLOW) Urine Appearance Clear (CLEAR) Urine pH 5.0 (5.0-6.5) Ur Specific [place] 1.010 (1.010-1.025) Urine Protein 30 H (NEGATIVE) mg/dL Urine Glucose (UA) Normal (NEGATIVE) mg/dL Urine Ketones Negative (NEGATIVE) mg/dL Urine Occult Blood Large H (NEGATIVE) Urine Nitrite Negative (NEGATIVE) Urine Bilirubin Negative (NEGATIVE) Urine Urobilinogen Normal (NEGATIVE) mg/dL Ur Leukocyte Esterase Negative (NEGATIVE) Urine RBC 20-30 H (0) Urine WBC 0-5 (0) Ur Squamous Epith Cells Few H (NS,R,O) Amorphous Sediment Few Urine Bacteria Few H (NS) Meds: Medications Discontinued Medications Generic Name Dose Route Start Last Admin Trade Name Marija PRN Reason Stop Dose Admin Lidocaine HCl 5 ml 12/22/18 18:48 12/22/18 19:20 Xylocaine 2% Jelly MUCMEM 12/22/18 18:49 Not Given ONETIME ONE Lidocaine HCl Confirm 12/22/18 18:53 12/22/18 19:05 Glydo Administered 12/22/18 18:54 6 ml Dose Administration 6 ml .ROUTE .STK-MED ONE Departure - Departure Time of Disposition: 19:36 Disposition: Home, Self-Care 01 Condition: Good Clinical Impression: Encounter for Roldan catheter replacement - Discharge Information Referrals: Mario Maradiaga MD [Primary Care Provider] - Forms: ED Department Discharge Additional Instructions: Please f/u with your PMD. Come back if your symptoms get worse acutely - My Orders Last 24 Hours: My Active Orders 12/22/18 19:05 Insert Roldan Catheter [Insert Urinary Catheter] [OM.PC] Q24H 12/22/18 19:21 Urinary Catheter Assessment [RC] QSHIFT - Assessment/Plan Last 24 Hours: My Active Orders 12/22/18 19:05 Insert Roldan Catheter [Insert Urinary Catheter] [OM.PC] Q24H 12/22/18 19:21 Urinary Catheter Assessment [RC] QSHIFT
== END 2018-12-22 19:44 | disposition home or self-care (01) ==
LOC: FB.ED 18:26
DX: Z46.6 Encounter for fitting and adjustment of urinary device (principal); I10 Essential (primary) hypertension; Z88.6 Allergy status to analgesic agent; Z88.8 Allergy status to other drugs, medicaments and biological substances; Z86.2 Personal history of diseases of the blood and blood-forming organs and certain disorders involving the immune mechanism; Z90.49 Acquired absence of other specified parts of digestive tract; Z98.890 Other specified postprocedural states; Z87.891 Personal history of nicotine dependence
CPT/HCPCS: 51702; 81001; 99283; A9270

== ENCOUNTER 2020-11-16 11:44 | Inpatient (IN) | payer MEDICARE, OTHER ==
--- NOTE | 2020-11-16 13:10 | EDM.PDOC ---
ED HPI GENERAL MEDICAL PROBLEM - General Time Seen by Provider: 11/16/20 13:06 Source of Information: Reports: Family History Limitations: Reports: Altered Mental Status, Other (Hearing impairment) - History of Present Illness INITIAL COMMENTS - FREE TEXT/NARRATIVE: Esdras is a 85 yo male who was found on the floor. He claims to have fallen earlier today and was not able to get up. He has no major complaints,except weakness. He is a poor historian and very hard of hearing.He has a h/o metastatic cancer,but not sure of the origin. He also has a h/o anemia,CKD - Related Data Allergies Allergy/AdvReac Type Severity Reaction Status Date / Time aspirin Allergy Bleeding Verified 11/16/20 13:21 simvastatin [From Zocor] Allergy Cannot Verified 11/16/20 13:21 Remember Home Meds: Home Meds Multivitamin [Multi-Vitamin Daily] 1 tab PO DAILY 02/22/18 [History] Dutasteride [Avodart] 0.5 mg PO DAILY 03/25/18 [History] Tamsulosin HCl 0.4 mg PO DAILY 03/25/18 [History] Metoprolol Succinate 50 mg PO DAILY 03/26/18 [History] Acetaminophen [Tylenol Arthritis] 650 mg PO BID 11/16/20 [History] Ascorbate Calcium [Vitamin C] 500 mg PO DAILY 11/16/20 [History] Furosemide [Lasix] 20 mg PO MOWEFR 11/16/20 [History] Magnesium Sulfate 250 mg PO BID 11/16/20 [History] Past Medical History HEENT History: Reports: Hard of Hearing, Impaired Vision, Other (See Below) Other HEENT History: R conjunctival hemorrhage Cardiovascular History: Reports: Afib, Arrhythmia, Cardiomyopathy, High Cholesterol, Hypertension, PVD, Other (See Below) Other Cardiovascular History: Peripheral vascular disease Gastrointestinal History: Reports: GI Bleed, PUD Genitourinary History: Reports: BPH, Prostate Disorder, Renal Disease, Retention, Urinary, Other (See Below) Other Genitourinary History: hx of blood in urine Musculoskeletal History: Reports: Amputation, Fracture Other Musculoskeletal History: 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 Dried blisters left lower leg. bilateral lower legs purple/blue in color with +1-2 edema. Denies pain due to neuropathy. - Infectious Disease History Infectious Disease History: Reports: Chicken Pox, Measles, Mumps - Past Surgical History Head Surgeries/Procedures: Reports: None HEENT Surgical History: Reports: Oral Surgery, Tonsillectomy GI Surgical History: Reports: Appendectomy, Cholecystectomy, Colonoscopy Musculoskeletal Surgical History: Reports: Amputation Social & Family History - Family History Family Medical History: No Pertinent Family History - Caffeine Use Caffeine Use: Reports: Coffee, Tea ED ROS GENERAL - Review of Systems Review Of Systems: Comprehensive ROS is negative, except as noted in HPI. ED EXAM, GENERAL - Physical Exam Exam: See Below Exam Limited By: Language Barrier General Appearance: Alert, Lethargic Ears: Normal External Exam Nose: Normal Inspection Throat/Mouth: Normal Inspection Head: Atraumatic, Normocephalic Neck: Normal Inspection, Full Range of Motion Respiratory/Chest: No Respiratory Distress, Chest Non-Tender, Crackles, Rales Cardiovascular: No JVD GI/Abdominal: Normal Bowel Sounds, Soft (Male) Exam: No Hernia Neurological: Alert, CN II-XII Intact Skin Exam: Warm #1 Interpretation EKG Date: 11/16/20 Rhythm: A-Fib Course - Vital Signs Last Recorded V/S: Last Vital Signs Temp 97 F 11/16/20 12:00 Pulse Resp 30 H 11/16/20 13:00 BP 118/62 11/16/20 13:00 Pulse Ox 100 11/16/20 13:00 - Orders/Labs/Meds Orders: Active Orders 24 hr Category Date Time Status Patient Status [ADT] Routine ADT 11/16/20 13:33 Ordered EKG Documentation Completion [RC] ASDIRECTED Care 11/16/20 12:02 Active EKG Documentation Completion [RC] ASDIRECTED Care 11/16/20 12:03 Active Height and Weight [RC] DAILY Care 11/16/20 13:33 Ordered Oxygen Therapy [RC] PRN Care 11/16/20 13:33 Ordered RT Aerosol Therapy [RC] ASDIRECTED Care 11/16/20 13:36 Ordered Up With Assistance [RC] ASDIRECTED Care 11/16/20 13:33 Ordered VTE/DVT Education [RC] Per Unit Routine Care 11/16/20 13:33 Ordered Vital Signs [RC] Q8H Care 11/16/20 13:33 Ordered OT Evaluation and Treatment [CONS] Routine Cons 11/16/20 13:33 Ordered PT Evaluation and Treatment [CONS] Routine Cons 11/16/20 13:33 Ordered Regular Diet [DIET] Diet 11/16/20 Breakfast Ordered Chest 1V Frontal [CR] Stat Exams 11/16/20 12:02 Taken BASIC METABOLIC PANEL,BMP [CHEM] AM Lab 11/17/20 05:11 Ordered CBC WITH AUTO DIFF [HEME] AM Lab 11/17/20 05:11 Ordered CREATINE KINASE,CK [CHEM] Stat Lab 11/16/20 12:25 Received CULTURE BLOOD [BC] Urgent Lab 11/16/20 13:04 Ordered CULTURE BLOOD [BC] Urgent Lab 11/16/20 13:04 Ordered PRO B-TYPE NATRIUR PEPT,BNPPRO [CHEM] Stat Lab 11/16/20 12:25 Received Albuterol [Proventil Neb Soln] Med 11/16/20 13:33 Ordered 2.5 mg NEB Q2H PRN Azithromycin [Zithromax] 500 mg Med 11/16/20 13:45 Ordered Sodium Chloride 0.9% [Normal Saline (AdvBag)] 250 ml IV Q24H Enoxaparin [Lovenox] Med 11/16/20 13:45 Ordered 40 mg SUBCUT Q24H Sodium Chloride 0.9% @ 125 MLS/HR (1000ml) Med 11/16/20 13:45 Ordered Sodium Chloride 0.9% [Normal Saline] 1,000 ml IV ASDIRECTED cefTRIAXone [Rocephin] 1 gm Med 11/16/20 13:45 Ordered Sodium Chloride 0.9% [Normal Saline] 50 ml IV Q24H Blood Culture x2 Reflex Set [OM.PC] Urgent Oth 11/16/20 13:04 Ordered Resuscitation Status Routine Resus Stat 11/16/20 13:33 Ordered EKG 12 Lead [EK] Routine Ther 11/16/20 12:02 Ordered Labs: Laboratory Tests 11/16/20 11/16/20 11/16/20 Range/Units 12:15 12:25 12:25 WBC 17.7 H (3.2-10.1) x10-3/uL RBC 5.09 (3.90-5.90) x10(6)uL Hgb 12.5 L (12.9-17.7) g/dL Hct 40.7 (38.3-50.1) % MCV 80.0 L (80.8-98.7) fL MCH 24.5 L (27.0-33.3) pg MCHC 30.6 (28.7-35.3) g/dL RDW 19.1 H (12.4-15.0) % Plt Count 340 (117-477) x10(3)uL MPV 8.8 (6.7-11.0) fL Add Manual Diff Yes Neutrophils % (Manual) 86 H (46-82) % Lymphocytes % (Manual) 8 L (13-37) % Monocytes % (Manual) 6 (4-12) % Sodium 140 (135-145) mmol/L Potassium 4.3 (3.5-5.3) mmol/L Chloride 102 D (100-110) mmol/L Carbon Dioxide 27 (21-32) mmol/L BUN 29 H (7-18) mg/dL Creatinine 1.3 (0.70-1.30) mg/dL Est Cr Clr Drug Dosing TNP Estimated GFR (MDRD) 52 L (>60) BUN/Creatinine Ratio 22.3 H (9-20) Glucose 96 (80-116) mg/dL Calcium 9.4 (8.6-10.2) mg/dL Total Bilirubin 0.8 (0.1-1.3) mg/dL AST 101 H D (5-25) IU/L ALT 25 D (12-36) U/L Alkaline Phosphatase 153 H (56-112) IU/L Troponin I (4.0-60.3) pg/mL Total Protein 7.3 (6.0-8.0) g/dL Albumin 2.1 L (3.2-4.6) g/dL Globulin 5.2 g/dL Albumin/Globulin Ratio 0.4 Urine Color Yellow (YELLOW) Urine Appearance Slightly cloudy (CLEAR) Urine pH 5.0 (5.0-6.5) Ur Specific Bradford 1.015 (1.010-1.025) Urine Protein Negative (NEGATIVE) mg/dL Urine Glucose (UA) Normal (NORMAL) mg/dL Urine Ketones 15 H (NEGATIVE) mg/dL Urine Occult Blood Negative (NEGATIVE) Urine Nitrite Negative (NEGATIVE) Urine Bilirubin Negative (NEGATIVE) Urine Urobilinogen Normal (NEGATIVE) mg/dL Ur Leukocyte Esterase Negative (NEGATIVE) Urine WBC 0-5 (0-5) Ur Squamous Epith Cells Occasional (NS,R,O) Urine Bacteria Few H (NS) SARS-CoV-2 RNA (NELI) (NEGATIVE) 11/16/20 12 Range/Units 12:25 12:35 WBC (3.2-10.1) x10-3/uL RBC (3.90-5.90) x10(6)uL Hgb (12.9-17.7) g/dL Hct (38.3-50.1) % MCV (80.8-98.7) fL MCH (27.0-33.3) pg MCHC (28.7-35.3) g/dL RDW (12.4-15.0) % Plt Count (117-477) x10(3)uL MPV (6.7-11.0) fL Add Manual Diff Neutrophils % (Manual) (46-82) % Lymphocytes % (Manual) (13-37) % Monocytes % (Manual) (4-12) % Sodium (135-145) mmol/L Potassium (3.5-5.3) mmol/L Chloride (100-110) mmol/L Carbon Dioxide (21-32) mmol/L BUN (7-18) mg/dL Creatinine (0.70-1.30) mg/dL Est Cr Clr Drug Dosing Estimated GFR (MDRD) (>60) BUN/Creatinine Ratio (9-20) Glucose (80-116) mg/dL Calcium (8.6-10.2) mg/dL Total Bilirubin (0.1-1.3) mg/dL AST (5-25) IU/L ALT (12-36) U/L Alkaline Phosphatase (56-112) IU/L Troponin I 18.0 (4.0-60.3) pg/mL Total Protein (6.0-8.0) g/dL Albumin (3.2-4.6) g/dL Globulin g/dL Albumin/Globulin Ratio Urine Color (YELLOW) Urine Appearance (CLEAR) Urine pH (5.0-6.5) Ur Specific Bradford (1.010-1.025) Urine Protein (NEGATIVE) mg/dL Urine Glucose (UA) (NORMAL) mg/dL Urine Ketones (NEGATIVE) mg/dL Urine Occult Blood (NEGATIVE) Urine Nitrite (NEGATIVE) Urine Bilirubin (NEGATIVE) Urine Urobilinogen (NEGATIVE) mg/dL Ur Leukocyte Esterase (NEGATIVE) Urine WBC (0-5) Ur Squamous Epith Cells (NS,R,O) Urine Bacteria (NS) SARS-CoV-2 RNA (NELI) Negative (NEGATIVE) Departure - Departure Time of Disposition: 13:37 Disposition: Admitted As Inpatient 64 Condition: Good Clinical Impression: Pneumonia - Discharge Information Referrals: Mario Maradiaga MD [Primary Care Provider] - Sepsis Event Note (ED) - Focused Exam Vital Signs: Vital Signs Temp Resp BP Pulse Ox 11/16/20 13:00 30 H 118/62 100 11/16/20 12:45 25 H 122/65 99 11/16/20 12:30 25 H 114/58 L 99 11/16/20 12:15 24 H 119/56 L 98 11/16/20 12:00 97 F 22 H 113/64 99 - Problem List & Annotations (1) Pneumonia SNOMED Code(s): 715575584 Code(s): J18.9 - PNEUMONIA, UNSPECIFIED ORGANISM Status: Acute Current Visit: Yes Qualifiers: Pneumonia type: due to unspecified organism (2) Afib SNOMED Code(s): 90086153 Code(s): I48.91 - UNSPECIFIED ATRIAL FIBRILLATION Status: Acute Current Visit: Yes Qualifiers: Atrial fibrillation type: unspecified Qualified Code(s): I48.91 - Unspecified atrial fibrillation - Problem List Review Problem List Initiated/Reviewed/Updated: Yes - My Orders Last 24 Hours: My Active Orders 11/16/20 Breakfast Regular Diet [DIET] 11/16/20 12:02 EKG Documentation Completion [RC] ASDIRECTED Chest 1V Frontal [CR] Stat EKG 12 Lead [EK] Routine 11/16/20 12:03 EKG Documentation Completion [RC] ASDIRECTED 11/16/20 12:25 CREATINE KINASE,CK [CHEM] Stat PRO B-TYPE NATRIUR PEPT,BNPPRO [CHEM] Stat 11/16/20 13:04 CULTURE BLOOD [BC] Urgent CULTURE BLOOD [BC] Urgent Blood Culture x2 Reflex Set [OM.PC] Urgent 11/16/20 13:33 Patient Status [ADT] Routine Height and Weight [RC] DAILY Oxygen Therapy [RC] PRN Up With Assistance [RC] ASDIRECTED VTE/DVT Education [RC] Per Unit Routine Vital Signs [RC] Q8H OT Evaluation and Treatment [CONS] Routine PT Evaluation and Treatment [CONS] Routine Albuterol [Proventil Neb Soln] 2.5 mg NEB Q2H PRN Resuscitation Status Routine 11/16/20 13:36 RT Aerosol Therapy [RC] ASDIRECTED 11/16/20 13:45 Azithromycin [Zithromax] 500 mg Sodium Chloride 0.9% [Normal Saline (AdvBag)] 250 ml IV Q24H Enoxaparin [Lovenox] 40 mg SUBCUT Q24H Sodium Chloride 0.9% @ 125 MLS/HR (1000ml) Sodium Chloride 0.9% [Normal Saline] 1,000 ml IV ASDIRECTED cefTRIAXone [Rocephin] 1 gm Sodium Chloride 0.9% [Normal Saline] 50 ml IV Q24H 11/17/20 05:11 BASIC METABOLIC PANEL,BMP [CHEM] AM CBC WITH AUTO DIFF [HEME] AM - Assessment/Plan Last 24 Hours: My Active Orders 11/16/20 Breakfast Regular Diet [DIET] 11/16/20 12:02 EKG Documentation Completion [RC] ASDIRECTED Chest 1V Frontal [CR] Stat EKG 12 Lead [EK] Routine 11/16/20 12:03 EKG Documentation Completion [RC] ASDIRECTED 11/16/20 12:25 CREATINE KINASE,CK [CHEM] Stat PRO B-TYPE NATRIUR PEPT,BNPPRO [CHEM] Stat 11/16/20 13:04 CULTURE BLOOD [BC] Urgent CULTURE BLOOD [BC] Urgent Blood Culture x2 Reflex Set [OM.PC] Urgent 11/16/20 13:33 Patient Status [ADT] Routine Height and Weight [RC] DAILY Oxygen Therapy [RC] PRN Up With Assistance [RC] ASDIRECTED VTE/DVT Education [RC] Per Unit Routine Vital Signs [RC] Q8H OT Evaluation and Treatment [CONS] Routine PT Evaluation and Treatment [CONS] Routine Albuterol [Proventil Neb Soln] 2.5 mg NEB Q2H PRN Resuscitation Status Routine 11/16/20 13:36 RT Aerosol Therapy [RC] ASDIRECTED 11/16/20 13:45 Azithromycin [Zithromax] 500 mg Sodium Chloride 0.9% [Normal Saline (AdvBag)] 250 ml IV Q24H Enoxaparin [Lovenox] 40 mg SUBCUT Q24H Sodium Chloride 0.9% @ 125 MLS/HR (1000ml) Sodium Chloride 0.9% [Normal Saline] 1,000 ml IV ASDIRECTED cefTRIAXone [Rocephin] 1 gm Sodium Chloride 0.9% [Normal Saline] 50 ml IV Q24H 11/17/20 05:11 BASIC METABOLIC PANEL,BMP [CHEM] AM CBC WITH AUTO DIFF [HEME] AM Plan: Admit for IV fluid,sIV antibiotics
[2020-11-16] MEDS ORDERED: Albuterol 0.083% 2.5 MG/3 ML Neb Soln NEB PRN (13:33)
[2020-11-16] MEDS: Sodium Chloride 0.9% 1,000 ML IV SCH ×2 (13:42→21:40)
[2020-11-16] MEDS ORDERED: cefTRIAXone 1 GM Vial ONE (13:42)
[2020-11-16] MEDS ORDERED: cefTRIAXone 1 GM in Sodium Chloride 0.9% 50 ML IV SCH (13:45)
[2020-11-16] MEDS: Azithromycin 500 MG in Sodium Chloride 0.9% 250 ML IV SCH (13:45)
[2020-11-16] MEDS: cefTRIAXone 1 GM Vial IVPUSH SCH (13:50)
[2020-11-16] MEDS: Enoxaparin 40 MG/0.4 ML Syringe SUBCUT SCH (16:27)
--- NOTE | 2020-11-16 19:20 | HP ---
ADMISSION DATE: 11/16/2020 CHIEF COMPLAINT: Pneumonia. HISTORY OF PRESENT ILLNESS: Mr. Murray is an 85-year-old man who has currently been living in his own home, who apparently fell last night. He says he thinks that his cane hit some water and he fell down, and he could not get himself up. He apparently lied there overnight until he was found this morning and brought in to the emergency room, where he was evaluated by Dr. Burton and is now admitted. The patient states he did not injure himself. He has had weak legs, however, and has been quite unsteady on his feet with difficulty walking. Mr. Murray also has had significant underlying medical problems including bilateral leg cellulitis, chronic kidney disease, chronic atrial fibrillation, BPH, MGUS, history of toe amputations, and most recently he has had multiple lung nodules, being followed with CT scan. The patient states he is not having any current pain. PAST MEDICAL HISTORY: Bilateral amputations of multiple toes, severe peripheral vascular disease with severe venous stasis changes of the lower extremities, CKD, chronic atrial fibrillation, hearing loss, he is status post appendectomy, cholecystectomy, and he has had colonoscopy. He has been on medications for BPH, hypertension, and diuretic for CHF secondary to cardiomyopathy. MEDICATIONS: 1. Tylenol p.r.n. 2. Vitamin C 500 mg daily. 3. Avodart 0.5 mg daily. 4. Furosemide 20 mg Thursday, Thursday, and Thursday. 5. Mag sulfate 250 mg b.i.d. 6. Metoprolol 50 mg daily. 7. Multivitamin one daily. 8. Flomax 0.4 mg daily. ALLERGIES: Aspirin and simvastatin listed. HABITS: He quit smoking and drinking, both about 25 years ago. REVIEW OF SYSTEMS: Negative for fever, chills, or sweats. No headaches. No recent change in hearing or vision. He has significant hearing loss. No sore throat or URI symptoms. No cough. He denies chest pain or palpitations. No abdominal pain, nausea, diarrhea, hematochezia, or swelling. He has chronic venous stasis changes of his legs. PHYSICAL EXAMINATION: GENERAL: He is alert, but hard of hearing. He does seem to give a fairly good history, however. VITAL SIGNS: Blood pressure 113/67, pulse 87 and irregular, respirations 28, O2 saturation 100% on room air, temp 93.9, and weight 179 pounds. SKIN: Shows severe venous stasis, wrinkled skin, and thickened skin changes of the lower extremities. He is missing multiple toes. No other rash noted. HEENT: Show pupils to be equal and reactive. Oropharynx is clear. Mouth is dry. LUNGS: Diminished breath sounds at the bases. No focal consolidation is heard. HEART: Irregular. No murmur or gallop heard. ABDOMEN: Normal bowel sounds. Soft and nontender. EXTREMITIES: Show the absent toes. Venous stasis changes. I could not palpate pulses in either lower extremity. There is no edema at the ankle at the malleoli. LABORATORY DATA: White count 17,700, hemoglobin 12.5, MCV 80, and platelets 340. Electrolytes normal. BUN 29, creatinine 1.3. CK 365. BNP 5657. Urinalysis is negative. Chest x-ray shows multiple nodules. ASSESSMENT: 1. Fall with weakness and multiple nodules on chest x-ray, and question metastatic cancer of unknown primary, question of superimposed pneumonia. 2. Severe peripheral vascular disease, status post multiple toe amputations. 3. Chronic atrial fibrillation. 4. Cardiomyopathy with congestive heart failure. 5. Chronic essential hypertension. 6. BPH. 7. Chronic kidney disease, stage 2. PLAN: He is admitted to the hospital. He is started on antibiotics for potential pneumonia. We will check EKG for his rhythm. We will have physical and occupational therapy assessments and assess for the need for further placement. We will continue to provide palliative care measures for his underlying medical problems. I anticipate a 48- to 72-hour hospital stay. /[id number] DEVIN/CICIL
[2020-11-17] MEDS: Tamsulosin 0.4 MG Cap.ER PO SCH (09:21)
[2020-11-17] MEDS: Metoprolol Succinate 50 MG Tab.ER PO SCH (09:21)
[2020-11-17] MEDS: Dutasteride 0.5 MG Cap PO SCH (09:25)
[2020-11-17] MEDS: Enoxaparin 40 MG/0.4 ML Syringe SUBCUT SCH (13:47)
[2020-11-17] MEDS: Azithromycin 500 MG in Sodium Chloride 0.9% 250 ML IV SCH (13:48)
[2020-11-17] MEDS: cefTRIAXone 1 GM Vial IVPUSH SCH (13:49)
[2020-11-17] MEDS: Sodium Chloride 0.9% 10 ML Syringe FLUSH PRN (13:58)
[2020-11-18] MEDS: Metoprolol Succinate 50 MG Tab.ER PO SCH (08:24)
[2020-11-18] MEDS: Dutasteride 0.5 MG Cap PO SCH (08:24)
[2020-11-18] MEDS: Tamsulosin 0.4 MG Cap.ER PO SCH (08:24)
--- NOTE | 2020-11-18 09:17 | PCM.PN ---
- General Info Date of Service: 11/18/20 Subjective Update: Patient has been noted to be increasingly confused. Also in mild respiratory distress. No fever, Functional Status: Reports: Pain Controlled - Review of Systems General: Reports: No Symptoms HEENT: Reports: No Symptoms Pulmonary: Reports: Cough Cardiovascular: Reports: Dyspnea on Exertion Gastrointestinal: Reports: No Symptoms Genitourinary: Reports: No Symptoms - Patient Data Vitals - Most Recent: Last Vital Signs Temp 98.9 F 11/18/20 00:00 Pulse 102 H 11/18/20 08:24 Resp 16 11/18/20 00:00 BP 119/58 L 11/18/20 08:24 Pulse Ox 99 11/18/20 00:00 Weight - Most Recent: 82.554 kg Samm Results Last 24 Hours: Microbiology 11/16/20 13:45 Aerobic Blood Culture - Preliminary Blood - Venous NO GROWTH AFTER 1 DAY Anaerobic Blood Culture - Preliminary NO GROWTH AFTER 1 DAY 11/16/20 13:50 Aerobic Blood Culture - Preliminary Blood - Venous - Lab Draw NO GROWTH AFTER 1 DAY Anaerobic Blood Culture - Preliminary NO GROWTH AFTER 1 DAY Med Orders - Current: Current Medications Albuterol (Proventil Neb Soln) 2.5 mg NEB Q2H PRN PRN Reason: Shortness Of Breath/wheezing Ceftriaxone Sodium (Rocephin) 1 gm IVPUSH Q24H [facility] Last Admin: 11/17/20 13:49 Dose: 1 gm Documented by: Dutasteride (Avodart) 0.5 mg PO DAILY [facility] Last Admin: 11/18/20 08:24 Dose: 0.5 mg Documented by: Enoxaparin Sodium (Lovenox) 40 mg SUBCUT Q24H [facility] Last Admin: 11/17/20 13:47 Dose: 40 mg Documented by: Furosemide (Lasix) 20 mg PO [id number] [facility] Azithromycin 500 mg/ Sodium (Chloride) 250 mls @ 250 mls/hr IV Q24H [facility] Last Admin: 11/17/20 13:48 Dose: 250 mls/hr Documented by: Metoprolol Succinate (Toprol Xl) 50 mg PO DAILY [facility] Last Admin: 11/18/20 08:24 Dose: 50 mg Documented by: Sodium Chloride (Saline Flush) 10 ml FLUSH ASDIRECTED PRN PRN Reason: IV Use Last Admin: 11/17/20 13:58 Dose: 10 ml Documented by: Tamsulosin HCl (Flomax) 0.4 mg PO DAILY [facility] Last Admin: 11/18/20 08:24 Dose: 0.4 mg Documented by: Discontinued Medications Ceftriaxone Sodium (Rocephin) Confirm Administered Dose 1 gm .ROUTE .STK-MED ONE Stop: 11/16/20 13:43 Last Admin: 11/16/20 13:45 Dose: Not Given Documented by: Sodium Chloride (Normal Saline) 1,000 mls @ 125 mls/hr IV ASDIRECTED [facility] Last Admin: 11/16/20 21:40 Dose: 125 mls/hr Documented by: Ceftriaxone Sodium 1 gm/ (Sodium Chloride) 50 mls @ 200 mls/hr IV Q24H [facility] Last Admin: 11/16/20 19:11 Dose: Not Given Documented by: - Exam Quality Assessment: Supplemental Oxygen General: Alert. No: Oriented, Cooperative HEENT: Pupils Equal Lungs: Crackles, Rales Cardiovascular: Irregular Rhythm GI/Abdominal Exam: Soft Extremities: Redness Sepsis Event Note - Evaluation Sepsis Screening Result: Sepsis Risk - Focused Exam Vital Signs: Vital Signs Temp Pulse Pulse Resp BP BP Pulse Ox 11/18/20 08:24 102 H 119/58 L 11/18/20 00:00 98.9 F 102 H 16 109/60 99 11/17/20 23:50 11/17/20 21:20 Pulse Ox 11/18/20 08:24 11/18/20 00:00 11/17/20 23:50 98 11/17/20 21:20 99 - Problem List & Annotations (1) Pneumonia SNOMED Code(s): 135689398 Code(s): J18.9 - PNEUMONIA, UNSPECIFIED ORGANISM Status: Acute Current Visit: Yes Qualifiers: Pneumonia type: due to unspecified organism (2) Afib SNOMED Code(s): 66258588 Code(s): I48.91 - UNSPECIFIED ATRIAL FIBRILLATION Status: Acute Current Visit: Yes Qualifiers: Atrial fibrillation type: unspecified Qualified Code(s): I48.91 - Unspecified atrial fibrillation (3) Delirium SNOMED Code(s): 3683118 Code(s): R41.0 - DISORIENTATION, UNSPECIFIED Status: Acute Current Visit: Yes (4) Metastatic cancer SNOMED Code(s): 725146831 Code(s): C79.9 - SECONDARY MALIGNANT NEOPLASM OF UNSPECIFIED SITE Status: Acute Current Visit: Yes (5) Acute exacerbation of congestive heart failure SNOMED Code(s): 899513954, 40385379306085 Code(s): I50.9 - HEART FAILURE, UNSPECIFIED Status: Acute Current Visit: No (6) Acute on chronic renal failure SNOMED Code(s): 240896210 Code(s): N17.9 - ACUTE KIDNEY FAILURE, UNSPECIFIED; N18.9 - CHRONIC KIDNEY DISEASE, UNSPECIFIED Status: Acute Current Visit: No (7) CKD (chronic kidney disease) stage 3, GFR 30-59 ml/min SNOMED Code(s): 602200202 Code(s): N18.3 - CHRONIC KIDNEY DISEASE, STAGE 3 (MODERATE) * DO NOT USE * Status: Acute Current Visit: No Annotation/Comment:: Avoid renal toxic drugs. Baseline of creatinine 1.6. Creatinine stable. (8) Venous insufficiency SNOMED Code(s): 09534885 Code(s): I87.2 - VENOUS INSUFFICIENCY (CHRONIC) (PERIPHERAL) Status: Acute Current Visit: No - Problem List Review Problem List Initiated/Reviewed/Updated: Yes - Plan Plan:: [facility]bt[facility]. Continue IV antibiotics,. PT/OT tomorrow. Repeat labs
[2020-11-18] MEDS: Enoxaparin 40 MG/0.4 ML Syringe SUBCUT SCH (15:04)
[2020-11-18] MEDS: Azithromycin 500 MG in Sodium Chloride 0.9% 250 ML IV SCH (15:04)
[2020-11-18] MEDS: cefTRIAXone 1 GM Vial IVPUSH SCH (15:16)
[2020-11-18] MEDS: Sodium Chloride 0.9% 10 ML Syringe FLUSH PRN (15:19)
--- NOTE | 2020-11-19 06:58 | PN ---
DATE SEEN: 11/17/2020 HISTORY: Riaz is an 85-year-old man from [place] who apparently fell and was not found until the next morning. He was brought in the emergency room where he was found to have lung infiltrates suspicious for pneumonia and elevated white count, elevated CK and proBNP, and he was admitted for cares. He has been on IV antibiotic for pneumonia. He is examined this morning in his bed. He is stating he is not feeling any pain, shortness of breath, cough, fever, chills, or acute complaints. PHYSICAL EXAMINATION: GENERAL: He is slightly hard of hearing, but understands and answers appropriately. VITAL SIGNS: He is afebrile. Blood pressure 110/56, pulse 117 and regular, respirations 22, O2 saturation 97% on room air, temperature 97.5. SKIN: Showed no rash or sign of trauma. HEENT: Mouth is dry. LUNGS: Had good air movement bilaterally with no focal consolidation heard. HEART: Irregular. No murmur heard. ABDOMEN: Soft and nontender. EXTREMITIES: Show no edema. Severe hemosiderin and venous stasis skin changes with multiple toe amputations. ASSESSMENT: 1. Fall with weakness. 2. Lung infiltrates with visible nodules. 3. Generalized weakness. 4. BPH. PLAN: We will continue his antibiotics today, increase activity as tolerated, and plan to return to home when able. We will continue to provide palliative care measures for Riaz's underlying condition and investigate his ongoing followup for his lung nodules. /[id number] DEVIN/KALYN
--- NOTE | 2020-11-19 08:53 | PCM.PN ---
- General Info Date of Service: 11/19/20 Subjective Update: Overnight he was agitated,confused,even hitting out at others.No fever. He is now off O2. Functional Status: Reports: Pain Controlled, New Symptoms ([place]) - Review of Systems General: Reports: No Symptoms HEENT: Reports: Other (hard of hearing) Pulmonary: Reports: Cough Cardiovascular: Reports: No Symptoms Gastrointestinal: Reports: No Symptoms Genitourinary: Reports: No Symptoms - Patient Data Vitals - Most Recent: Last Vital Signs Temp 97.9 F 11/19/20 00:00 Pulse 118 H 11/19/20 08:00 Resp 20 11/19/20 08:00 BP 148/88 H 11/19/20 08:00 Pulse Ox 94 L 11/19/20 08:00 Weight - Most Recent: 82.735 kg Lab Results Last 24 Hours: Laboratory Results - last 24 hr 11/18/20 11/19/20 11/19/20 Range/Units 09:30 06:43 06:43 WBC 16.1 H (3.2-10.1) x10-3/uL RBC 4.13 (3.90-5.90) x10(6)uL Hgb 9.9 L (12.9-17.7) g/dL Hct 32.6 L (38.3-50.1) % MCV 78.9 L (80.8-98.7) fL MCH 24.1 L (27.0-33.3) pg MCHC 30.5 (28.7-35.3) g/dL RDW 19.1 H (12.4-15.0) % Plt Count 245 (117-477) x10(3)uL MPV 8.1 (6.7-11.0) fL Add Manual Diff Yes Neutrophils % (Manual) 89 H (46-82) % Lymphocytes % (Manual) 8 L (13-37) % Monocytes % (Manual) 3 L (4-12) % Hypersegmented Neuts Many Sodium 134 L (135-145) mmol/L Potassium 4.5 (3.5-5.3) mmol/L Chloride 99 L (100-110) mmol/L Carbon Dioxide 23 (21-32) mmol/L BUN 39 H (7-18) mg/dL Creatinine 1.6 H (0.70-1.30) mg/dL Est Cr Clr Drug Dosing 31.47 mL/min Estimated GFR (MDRD) 41 L (>60) BUN/Creatinine Ratio 24.4 H (9-20) Glucose 86 (80-116) mg/dL Calcium 9.0 (8.6-10.2) mg/dL C-Reactive Protein 20.8 H* (0.5-0.9) mg/dL NT-Pro-B Natriuret Pep (<=450) pg/mL 11/19/20 Range/Units 06:43 WBC (3.2-10.1) x10-3/uL RBC (3.90-5.90) x10(6)uL Hgb (12.9-17.7) g/dL Hct (38.3-50.1) % MCV (80.8-98.7) fL MCH (27.0-33.3) pg MCHC (28.7-35.3) g/dL RDW (12.4-15.0) % Plt Count (117-477) x10(3)uL MPV (6.7-11.0) fL Add Manual Diff Neutrophils % (Manual) (46-82) % Lymphocytes % (Manual) (13-37) % Monocytes % (Manual) (4-12) % Hypersegmented Neuts Sodium (135-145) mmol/L Potassium (3.5-5.3) mmol/L Chloride (100-110) mmol/L Carbon Dioxide (21-32) mmol/L BUN (7-18) mg/dL Creatinine (0.70-1.30) mg/dL Est Cr Clr Drug Dosing mL/min Estimated GFR (MDRD) (>60) BUN/Creatinine Ratio (9-20) Glucose (80-116) mg/dL Calcium (8.6-10.2) mg/dL C-Reactive Protein (0.5-0.9) mg/dL NT-Pro-B Natriuret Pep 06436 H* (<=450) pg/mL Samm Results Last 24 Hours: Microbiology 11/16/20 13:50 Aerobic Blood Culture - Preliminary Blood - Venous - Lab Draw NO GROWTH AFTER 2 DAYS Anaerobic Blood Culture - Preliminary NO GROWTH AFTER 2 DAYS 11/16/20 13:45 Aerobic Blood Culture - Preliminary Blood - Venous NO GROWTH AFTER 2 DAYS Anaerobic Blood Culture - Preliminary NO GROWTH AFTER 2 DAYS Med Orders - Current: Current Medications Albuterol (Proventil Neb Soln) 2.5 mg NEB Q2H PRN PRN Reason: Shortness Of Breath/wheezing Ceftriaxone Sodium (Rocephin) 1 gm IVPUSH Q24H [facility] Last Admin: 11/18/20 15:16 Dose: 1 gm Documented by: Dutasteride (Avodart) 0.5 mg PO DAILY [facility] Last Admin: 11/18/20 08:24 Dose: 0.5 mg Documented by: Enoxaparin Sodium (Lovenox) 40 mg SUBCUT Q24H [facility] Last Admin: 11/18/20 15:04 Dose: 40 mg Documented by: Furosemide (Lasix) 20 mg PO MoWeFr@0900 [facility] Azithromycin 500 mg/ Sodium (Chloride) 250 mls @ 250 mls/hr IV Q24H [facility] Last Admin: 11/18/20 15:04 Dose: 250 mls/hr Documented by: Metoprolol Succinate (Toprol Xl) 50 mg PO DAILY [facility] Last Admin: 11/18/20 08:24 Dose: 50 mg Documented by: Quetiapine Fumarate (Seroquel) 25 mg PO BID [facility] Sodium Chloride (Saline Flush) 10 ml FLUSH ASDIRECTED PRN PRN Reason: IV Use Last Admin: 11/18/20 15:19 Dose: 10 ml Documented by: Tamsulosin HCl (Flomax) 0.4 mg PO DAILY [facility] Last Admin: 11/18/20 08:24 Dose: 0.4 mg Documented by: Discontinued Medications Ceftriaxone Sodium (Rocephin) Confirm Administered Dose 1 gm .ROUTE .STK-MED ONE Stop: 11/16/20 13:43 Last Admin: 11/16/20 13:45 Dose: Not Given Documented by: Sodium Chloride (Normal Saline) 1,000 mls @ 125 mls/hr IV ASDIRECTED [facility] Last Admin: 11/16/20 21:40 Dose: 125 mls/hr Documented by: Ceftriaxone Sodium 1 gm/ (Sodium Chloride) 50 mls @ 200 mls/hr IV Q24H [facility] Last Admin: 11/16/20 19:11 Dose: Not Given Documented by: - Exam General: Alert. No: Oriented HEENT: Pupils Equal Neck: Supple Lungs: Rales, Rhonchi Cardiovascular: Irregular Rhythm Skin: Warm Psy/Mental Status: Agitated Sepsis Event Note - Evaluation Sepsis Screening Result: No Definite Risk - Focused Exam Vital Signs: Vital Signs Temp Pulse Resp BP Pulse Ox 11/19/20 08:00 118 H 20 148/88 H 94 L 11/19/20 00:00 97.9 F 106 H 16 125/72 97 - Problem List & Annotations (1) Pneumonia SNOMED Code(s): 959304369 Code(s): J18.9 - PNEUMONIA, UNSPECIFIED ORGANISM Status: Acute Current Visit: Yes Qualifiers: Pneumonia type: due to unspecified organism (2) Afib SNOMED Code(s): 04772008 Code(s): I48.91 - UNSPECIFIED ATRIAL FIBRILLATION Status: Acute Current Visit: Yes Qualifiers: Atrial fibrillation type: unspecified Qualified Code(s): I48.91 - Unspecified atrial fibrillation (3) Delirium SNOMED Code(s): 0219158 Code(s): R41.0 - DISORIENTATION, UNSPECIFIED Status: Acute Current Visit: Yes (4) Metastatic cancer SNOMED Code(s): 969616294 Code(s): C79.9 - SECONDARY MALIGNANT NEOPLASM OF UNSPECIFIED SITE Status: Acute Current Visit: Yes (5) Acute exacerbation of congestive heart failure SNOMED Code(s): 690785033, 11979626074973 Code(s): I50.9 - HEART FAILURE, UNSPECIFIED Status: Acute Current Visit: No (6) Acute on chronic renal failure SNOMED Code(s): 927055401 Code(s): N17.9 - ACUTE KIDNEY FAILURE, UNSPECIFIED; N18.9 - CHRONIC KIDNEY DISEASE, UNSPECIFIED Status: Acute Current Visit: No (7) CKD (chronic kidney disease) stage 3, GFR 30-59 ml/min SNOMED Code(s): 728205848 Code(s): N18.3 - CHRONIC KIDNEY DISEASE, STAGE 3 (MODERATE) * DO NOT USE * Status: Acute Current Visit: No Annotation/Comment:: Avoid renal toxic drugs. Baseline of creatinine 1.6. Creatinine stable. (8) Venous insufficiency SNOMED Code(s): 77059480 Code(s): I87.2 - VENOUS INSUFFICIENCY (CHRONIC) (PERIPHERAL) Status: Acute Current Visit: No (9) Dementia SNOMED Code(s): 08570652 Code(s): F03.90 - UNSPECIFIED DEMENTIA WITHOUT BEHAVIORAL DISTURBANCE Status: Acute Current Visit: Yes Qualifiers: Dementia type: Alzheimer's disease Alzheimer's disease onset: late-onset Dementia behavioral disturbance: with behavioral disturbance Qualified Code(s): G30.1 - Alzheimer's disease with late onset; F02.81 - Dementia in other diseases classified elsewhere with behavioral disturbance - Problem List Review Problem List Initiated/Reviewed/Updated: Yes - My Orders Last 24 Hours: My Active Orders 11/19/20 09:00 QUEtiapine [SEROqueL] 25 mg PO BID 11/20/20 05:11 BASIC METABOLIC PANEL,BMP [CHEM] AM CBC WITH AUTO DIFF [HEME] AM PRO B-TYPE NATRIUR PEPT,BNPPRO [CHEM] DAILY 11/21/20 05:11 PRO B-TYPE NATRIUR PEPT,BNPPRO [CHEM] DAILY - Plan Plan:: [facility],and they do not show what type of cancer he has.His behavior has worsened. I willstart Seroquel. Awaiting placement.
[2020-11-19] MEDS ORDERED: Furosemide 20 MG Tab PO SCH (09:00)
[2020-11-19] MEDS: Dutasteride 0.5 MG Cap PO SCH (14:38)
[2020-11-19] MEDS: QUEtiapine 25 MG Tab PO SCH ×2 (14:38→20:06)
[2020-11-19] MEDS: Tamsulosin 0.4 MG Cap.ER PO SCH (14:38)
[2020-11-19] MEDS: Metoprolol Succinate 50 MG Tab.ER PO SCH (14:41)
[2020-11-19] MEDS: Azithromycin 500 MG in Sodium Chloride 0.9% 250 ML IV SCH (14:41)
[2020-11-19] MEDS: Enoxaparin 40 MG/0.4 ML Syringe SUBCUT SCH (14:51)
--- NOTE | 2020-11-19 15:22 | CR ---
INDICATION: CHEST ONE VIEW: A single AP upright view of the chest 11/16/20 was obtained - no comparisons. Areas of increased density are noted in the perihilar area on the left and at the right lung base - costophrenic angle. Findings may represent areas of pleural reaction and/or infiltrate, or even neoplastic process. The density on the right may represent artifact. When clinically possible, full inspiration PA and lateral views of the chest may be helpful for further evaluation. The heart did not appear grossly enlarged. The aorta is calcified in the arch area. Overlying EKG leads are noted. IMPRESSION: Areas of density are noted bilaterally, further examination may be warranted. MTDD
[2020-11-19] MEDS: cefTRIAXone 1 GM Vial IVPUSH SCH (16:00)
[2020-11-20] MEDS: Tamsulosin 0.4 MG Cap.ER PO SCH (08:13)
[2020-11-20] MEDS: QUEtiapine 25 MG Tab PO SCH (08:13)
[2020-11-20] MEDS: Metoprolol Succinate 50 MG Tab.ER PO SCH (08:13)
[2020-11-20] MEDS: Dutasteride 0.5 MG Cap PO SCH (08:13)
[2020-11-20] MEDS ORDERED: Tuberculin, PPD 5 Units/0.1 ML 1 ML MDV IDERM ONE (08:52)
--- NOTE | 2020-11-20 10:05 | DISCH ---
DISCHARGE DATE: 11/20/2020 REASON FOR ADMISSION: 1. Pneumonia. 2. Metastatic cancer of unknown origin. 3. Acute kidney injury. 4. Atrial fibrillation. 5. Mild CHF. DISCHARGE DIAGNOSES: 1. Pneumonia. 2. Metastatic cancer of unknown origin. 3. Acute kidney injury. 4. Atrial fibrillation. 5. Mild congestive heart failure. 6. Dementia, late onset with behavioral disturbance. BRIEF HISTORY: This is an 85-year-old who was having been found lying down, unable to get up. He was confused. He was found to have opacities on both lung whitt, thought to be either pneumonia or metastatic cancer. Attempts to get previous record was futile. He was treated with Rocephin and azithromycin. Given initially some fluids and then Lasix Thursday, Thursday, and Thursday, which seemed to help. He was noted to be confused and sometimes even hitting out at staff. 25 mg of Seroquel was began twice a day, which helped immensely. He will be discharged to the retirement today. DISCHARGE MEDICATIONS: 1. Augmentin 875 mg twice a day. 2. Seroquel 25 mg b.i.d. He will go home on his home medications that he was taking. FOLLOWUP: With PCP within 1 week. I spent more than 30 minutes in the discharge of the patient. /[id number] FLORIDALMA/KALYN
== END 2020-11-20 09:15 | DRG 194 ==
LOC: FB.ED 11:44 → FB.MS 13:37
PROVIDERS: ADMIT Family Medicine; ATTEND Family Medicine
DX: J18.9 Pneumonia, unspecified organism (principal); I48.91 Unspecified atrial fibrillation; H91.90 Unspecified hearing loss, unspecified ear; H54.7 Unspecified visual loss; E78.00 Pure hypercholesterolemia, unspecified; I42.9 Cardiomyopathy, unspecified; I49.9 Cardiac arrhythmia, unspecified; N17.9 Acute kidney failure, unspecified; I10 Essential (primary) hypertension; Z87.11 Personal history of peptic ulcer disease; N40.1 Benign prostatic hyperplasia with lower urinary tract symptoms; R33.9 Retention of urine, unspecified; G62.9 Polyneuropathy, unspecified; E66.9 Obesity, unspecified; D64.9 Anemia, unspecified; I48.20 Chronic atrial fibrillation, unspecified; Z79.899 Other long term (current) drug therapy; I13.0 Hypertensive heart and chronic kidney disease with heart failure and stage 1 through stage 4 chronic kidney disease, or unspecified chronic kidney disease; W19.XXXA Unspecified fall, initial encounter; C79.9 Secondary malignant neoplasm of unspecified site; F02.81 Dementia in other diseases classified elsewhere, unspecified severity, with behavioral disturbance; F05 Delirium due to known physiological condition; I50.9 Heart failure, unspecified; Z79.01 Long term (current) use of anticoagulants; Z20.828 Contact with and (suspected) exposure to other viral communicable diseases; N40.0 Benign prostatic hyperplasia without lower urinary tract symptoms; Z90.49 Acquired absence of other specified parts of digestive tract; Z88.8 Allergy status to other drugs, medicaments and biological substances; N18.30 Chronic kidney disease, stage 3 unspecified; G30.1 Alzheimer's disease with late onset; I73.9 Peripheral vascular disease, unspecified
CPT/HCPCS: 36415; 71045; 80048; 80053; 81001; 82550; 83880; 84484; 85025; 86140; 87040; 93005; 94760; 96365; 97166-GO; 99285-25; A9270-GY; J0456; J0696; J1650; J7030; J7050; U0002